=== PATIENT | female | born 1960 | race Caucasian/White ===

== ENCOUNTER 2016-03-27 13:46 | Observation (INO) ==
[2016-03-27] MEDS ORDERED: Naloxone 0.4 MG/ML INJ IVP PRN (16:30)
[2016-03-27] MEDS ORDERED: *HR* Morphine 2 MG/ML SYRINGE IVP PRN (16:30)
[2016-03-27 17:21] LABS: Chol/HDL Ratio 3.5 (0-4.9)
[2016-03-27] MEDS ORDERED: D5% in Water 1,000 ML IV PRN (17:25)
[2016-03-27] MEDS ORDERED: *HR* Dextrose 50 % in Water (Syg) 50 ML SYRINGE IVP PRN (17:25)
[2016-03-27] MEDS ORDERED: Dextrose Gel 15 GM PO PRN ×2 (17:25)
--- NOTE | 2016-03-27 17:25 | Internal Med History&Physical ---
Date of Encounter: 03/27/16 Time of Encounter: 17:20 Assessment and Plan (1) Elevated troponin Current visit: Yes Status: Acute In the setting of chest pain, with no EKG changes. Possibly from demand ischemia CXR with RLL pneumonia Trend troponins Continue medical therapy with ASA Beta blockers, Lipitor, and before meals. Check A1c and lipid panel. Obtain echocardiogram. Cardiology eval Sublingual nitroglycerin when necessary chest pain (2) Pneumonia Current visit: Yes Status: Acute RLL pneumonia Start Ceftriaxone and ASA No evidence of sepsis Check legionella and streptococcal antigens send sputum cultures Qualifiers: Pneumonia type: due to unspecified organism Laterality: right Lung location: lower lobe of lung Qualified Code(s): J18.1 - Lobar pneumonia, unspecified organism (3) Chest pain Current visit: Yes Status: Acute As above Qualifiers: Chest pain type: unspecified Qualified Code(s): R07.9 - Chest pain, unspecified (4) Diabetes mellitus Current visit: Yes Status: Chronic Qualifiers: Diabetes mellitus type: type 2 Diabetes mellitus complication status: with unspecified complications 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 Qualified Code(s): E11.8 - Type 2 diabetes mellitus with unspecified complications (5) Fibromyalgia Current visit: Yes Status: Chronic Resume home medications when confirmed (6) Seizure disorder Current visit: Yes Status: Chronic Resume home medications when confirmed (7) Hyperlipidemia Current visit: Yes Status: Chronic Check lipid panel, resume Lipitor Qualifiers: Hyperlipidemia type: unspecified Qualified Code(s): E78.5 - Hyperlipidemia , unspecified (8) Hypertension Current visit: Yes Status: Chronic Controlled, resume home meds Qualifiers: Hypertension type: essential hypertension Qualified Code(s): I10 - Essential (primary) hypertension Internal Medicine - H&P: HPI Chief complaint: Chest pain Admitted From: Home Plans for Post Hospital Care: Home History of present illness: Ms. Olivia is a 55 year old female with past medical history of asthma COPD, diabetes mellitus, fibromyalgia, hypertension, hyperlipidemia, seizures, obesity. Patient presents to ER at [facility] with complaints of one-week long chest pain She describes the chest pain was pressure-like and central chest non-radiating at the time. Chest pain was severe, and relieved spontaneously. Denies nausea or vomiting, denies dizziness, reports feeling diaphoretic and clammy at the time when she had the chest pain. She presented to her PCP today and was referred to the ER. She also has cough starting at the same time productive of greenish sputum she denies fever or chills. She denies lower extremity swelling, denies orthopnea, denies paroxysmal nocturnal dyspnea. She also reported since the onset of the chest. She has been having left arm weakness and tingling. She denies abdominal, genitourinary, or neurologic symptoms. She also recently developed right shingles she is on treatment. Workup referral sent to revealed essentially normal CBC, chemistry, carbonation , now, and EKG no new ischemic changes. Troponin was 0.07 Patient was given nitroglycerin patch, aspirin and Zofran. At my time of review, she denied chest pain. Past Med Surg Social Fam HX - Past Medical History Medical history: asthma, cancer, COPD, diabetes, fibromyalgia, hyperlipidemia, hypertension, malignancy, seizures, TIA, other Psychiatric history: anxiety, depression, prior suicide attempt - Past Surgical History Surgical History: cholecystectomy, hysterectomy, knee replacement, orthopedic, other, other - Social History Smoking Status: Current every day smoker Packs per day: 1 Smokeless Tobacco Status: No Alcohol use: none Drug use: none - Family History Mother Hx Family Cardiac Disorders: Yes Hx Family Cancer: Yes Hx Family Endocrine Disorder: Yes Internal Medicine - H&P: Meds Aspirin Enteric Coated [Aspirin EC] 81 mg PO DAILY 01/26/15 [History] Docusate Sodium [Stool Softener] 50 mg PO TID 01/26/15 [History] Escitalopram [Lexapro] 30 mg PO DAILY 01/26/15 [History] Gabapentin [Neurontin] 600 mg PO TID 01/26/15 [History] Lisinopril [Zestril] 5 mg PO DAILY 01/26/15 [History] Omeprazole [PriLOSEC] 20 mg PO DAILY 01/26/15 [History] RisperiDONE [RisperDAL] 4 mg PO HS 01/26/15 [History] Rosuvastatin Calcium [Crestor] 10 mg PO HS 01/26/15 [History] TraZODone 100 mg PO HS 01/26/15 [History] Zonisamide [Zonegran] 100 mg PO DAILY 01/26/15 [History] Zonisamide [Zonegran] 150 mg PO HS 01/26/15 [History] Aclidinium [place] [Tudorza Pressair] 1 puff IH BID 12/14/15 [History] Albuterol Sulfate [Ventolin Hfa] 2 puff IH Q4H 12/14/15 [History] Alprazolam [Xanax 1 MG Tablet] 1 mg PO TID PRN 12/14/15 [History] Diclofenac Sodium [Voltaren] 1 appl TP QID 12/14/15 [History] Fluticasone/Salmeterol [Advair 500-50 Diskus] 1 puff IH BID 12/14/15 [History] Ipratropium/Albuterol Neb [Duoneb] 3 ml IH Q6HR 12/14/15 [History] Lidocaine Patch [Lidoderm 5% patch] 1 patch TP DAILY PRN 12/14/15 [History] Melatonin 10 mg PO HS 12/14/15 [History] Metformin [Glucophage] 500 mg PO BIDWM 12/14/15 [History] Nitroglycerin [Nitrostat] 0.4 mg SL AD PRN 12/14/15 [History] Oxycodone HCl/Acetaminophen [Percocet 7.5-325 mg Tablet] 1 tab PO Q6H PRN [History] Pramipexole Di-HCl [Pramipexole Dihydrochloride] 0.125 mg PO HS 12/14/15 [ History] Psyllium Husk [Daily Fiber] 0.52 gm PO TID 12/14/15 [History] Acyclovir [Zovirax] 800 mg PO QID 03/27/16 [History] Allergies amitriptyline Allergy (Verified 03/27/16 11:42) Anaphylaxis ibuprofen Allergy (Verified 03/27/16 11:42) See Comments UNSURE meloxicam Allergy (Verified 03/27/16 11:42) Difficulty Breathing methocarbamol [From Robaxin] Allergy (Verified 03/27/16 11:42) Difficulty Breathing naproxen Allergy (Verified 03/27/16 11:42) See Comments UNSURE NSAIDS (Non-Steroidal Anti-Inflamma Adverse Reaction (Verified 03/27/16 11:42) See Comments FLUID RETENTION sulfamethoxazole [From Bactrim] Adverse Reaction (Verified 03/27/16 11:42) Hives Temazepam Adverse Reaction (Verified 03/27/16 11:42) See Comments SOB tramadol [From Ultram] Adverse Reaction (Verified 03/27/16 11:42) See Comments Fluid retention trimethoprim [From Bactrim] Adverse Reaction (Verified 03/27/16 11:42) Hives All Systems PM: A 10-system review of systems was performed and is negative for pertinent findings except as documented above in the HPI. - Constitutional Constitutional: no chills, no fever(s), no night sweats - EENT Eyes: no change in vision, no discharge, no pain, no photophobia Ears: no ear discharge, no ear pain, no tinnitus Nose, mouth and throat: no dysphagia, no nasal discharge, no neck pain, no sore throat - Cardiovascular Cardiovascular ROS IM: as per HPI - Respiratory Respiratory: as per HPI - Gastrointestinal Gastrointestinal: as per HPI - Genitourinary Genitourinary: as per HPI - Musculoskeletal Musculoskeletal ROS IM: no numbness, no tingling - Integumentary Integumentary IM: no rash, no unusual bruising - Neurological Neurological ROS: no confusion, no convulsions, no focal weakness, no numbness, no tingling, no tremor(s) - Hematologic/Lymphatic Hematologic/Lymphatic: no easy bruising - Constitutional Vitals: Temp Pulse Resp BP Pulse Ox 98.0 F 87 17 126/71 93 L 03/27/16 16:14 03/27/16 16:14 03/27/16 16:14 03/27/16 16:14 03/27/16 16:14 General appearance: Present: A&O X 3, pleasant, no acute distress, obese - Head Head exam: Present: atraumatic, normocephalic - Eye Eye exam: Present: PERRL, conjuntiva pink, sclera anicteric Pupils: Present: PERRL - Neck Neck exam general surgery: Present: supple, trachea midline. Absent: lymphadenopathy - Respiratory Respiratory exam: Present: CTAB. Absent: accessory muscle use, rales, rhonchi, wheezes - Cardiovascular Cardiovascular exam: Present: RRR, +S1, +S2. Absent: diastolic murmur, gallop, rubs, systolic murmur - GI/Abdominal GI/Abdominal exam: Present: normal bowel sounds, soft, no peritoneal signs. Absent: distended, tenderness - Extremities Exam Extremities exam: Present: warm, radial pulses palpable and symetrical. Absent : calf tenderness, cyanotic, pedal edema - Neurological Exam Neurological exam: Present: CN II-XII intact, oriented X3, no focal deficits. Absent: pronater drift, facial droop, speech deficit - Skin Skin exam: Present: dry, intact Internal Med - H&P Results - EKG Data -: EKG Interpreted by Myself EKG shows normal: sinus rhythm, ST-T waves Rate: normal - EKG Data Prior EKG available for review: yes When compared to previous EKG: there is no significant change Interpretation IM: normal EKG
[2016-03-27] MEDS: Nicotine 21 MG PATCH.TD24 TD SCH (17:43)
[2016-03-27] MEDS: *HR* OxyCODONE Immed Rel 5 MG TABLET PO PRN (17:44)
[2016-03-27] MEDS: Azithromycin 500 MG in D5% in Water 250 ML IVPB SCH (20:03)
[2016-03-27] MEDS: Acetaminophen 325 MG TABLET PO PRN (20:18)
[2016-03-27] MEDS ORDERED: (Diclofenac Sodium [Voltaren] 1 APPL) TP PRN (20:49)
[2016-03-27] MEDS ORDERED: Nitroglycerin 0.4 MG TAB.SUBL SL PRN (20:49)
[2016-03-27] MEDS: traZODone 50 MG TABLET PO SCH (21:38)
[2016-03-27] MEDS: Gabapentin 300 MG CAPSULE PO SCH (21:38)
[2016-03-27] MEDS: ALPRAZolam 1 MG TABLET PO PRN (21:39)
[2016-03-27] MEDS: Melatonin 3 MG TABLET PO SCH (21:39)
[2016-03-27] MEDS: risperiDONE 1 MG TABLET PO SCH (21:40)
[2016-03-27] MEDS: Docusate Oral Soln 100 MG/10 ML UDC PO SCH (21:43)
[2016-03-27] MEDS: Insulin LISPRO 300 UNITS/3 ML VIAL SQ SCH (21:45)
[2016-03-27] MEDS: Insulin DETEMIR 100 UNIT/ML X5UNITS SQ SCH (21:46)
[2016-03-27] MEDS: Budesonide/Formoterol 160/4.5 MDI IH SCH (22:59)
[2016-03-28] MEDS ORDERED: Ipratropium/Albuterol Neb 3 ML IH SCH
[2016-03-28] MEDS: (Aclidinium Bromide [Tudorza Pressair] 1 PUFF) IH SCH ×2 (04:37→10:28)
[2016-03-28] MEDS ORDERED: Ipratropium/Albuterol Neb 3 ML ONE (04:39)
[2016-03-28 05:13] LABS: Basophils # 0.1 K/mcL (0.0-0.2); Basophils % 0.5 %; Eosinophils % 0.4 %; Hematocrit 42.4 % (35.3-44.9); Immature Granulocytes % 0.5 % (0-4); Lymphocytes % 27.2 %; Mean Corpuscular Hemoglobin 30.8 pg (28.0-33.3); Mean Corpuscular Volume 93.2 fL (83.0-100.0); Mean Platelet Volume 9.8 fL (9.4-12.4); Monocytes # 0.8 K/mcL (0.0-1.3); Platelet Count 260 K/mcL (140-400); Red Blood Count 4.55 M/mcL (3.82-4.97); Red Cell Distribution Width 13.5 % (11.5-14.5); Segmented Neutrophils % 64.4 %
[2016-03-28 05:28] LABS: Hemoglobin A1C 5.7 %
[2016-03-28 05:34] LABS: BUN/Creatinine Ratio 11 (6-26); Blood Urea Nitrogen 7 mg/dL (7-20); Calcium 9.4 mg/dL (8.6-10.8); Carbon Dioxide 22 mEq/L (19-29); Chloride 110 mEq/L (98-109); Glucose 92 mg/dL (70-99); Osmolality,Calculated 292 (280-300); Sodium 142 mEq/L (136-145); eGFR For African Americans > 60 (> 60); eGFR For Non-African Americans > 60 (> 60)
--- NOTE | 2016-03-28 08:43 | Cardiology Consult Note ---
Date of Encounter: 03/28/16 Time of Encounter: 08:34 Assessment and Plan (1) Atypical chest pain Current Visit: Yes Status: Acute Patient is a pleasant 55-year-old with multiple comorbidities who presents with 2 weeks of chest discomfort. Describes associated fevers, chills, and a productive cough. Chest x-ray demonstrates a right lower lobe infiltrate suggestive of pneumonia. Mild, adynamic troponin I elevation noted. No acute ECG changes. Presentation is not consistent with acute coronary syndrome. Suspect troponin elevation related to pneumonia. Agree with echocardiogram. If no significant findings on echocardiogram, then no further inpatient cardiac testing appears to be necessary at this time. Your medical management regarding pneumonia. (2) Elevated troponin Current Visit: Yes Status: Acute Discussion w patient/family: The assessment and plan as outlined above was discussed with the patient and/or family members who expressed understanding and agreement. All questions were answered. Thank you for involving us in the care of your patient. Please call with any questions. History of Present Illness Consult date: 03/28/16 Requesting physician: Noel Mccrary Consult reason: Chest pain Chief complaint: Chest pain History of present illness: Ms. Olivia is a 55 year old female with a history of COPD, CRISTIANA on CPAP, DM, HLD, and HTN. Transferred from outside hospital for CP. ECG 03/27/2016: NSR. Nonspecific inferior ST-T changes. Troponins 0.05, 0.06, 0.05. CXR 03/27/2016: RLL infiltrate. Upon my evaluation, patient reports chest discomfort for the past 2 weeks. She also reports a productive cough, yellow sputum. She describes intermittent subjective fevers and chills. She reports chest pain is reproducible with coughing. Prior testing: Lexiscan nuclear stress test 07/2012: Negative for ischemia or prior infarct. Echocardiogram 07/2012: LVEF 60-65%. Normal LV, RV size and function. No VHD. Small pericardial effusion. No tamponade. Past Med Surg Social Fam HX - Past Medical History Medical history: asthma, cancer, COPD, diabetes, fibromyalgia, hyperlipidemia, hypertension, malignancy, seizures, TIA, other Psychiatric history: anxiety, depression, prior suicide attempt - Past Surgical History Surgical History: cholecystectomy, hysterectomy, knee replacement, orthopedic, other, other - Social History Smoking Status: Current every day smoker Packs per day: 1 Smokeless Tobacco Status: No Alcohol use: none Drug use: none - Family History Mother Hx Family Cardiac Disorders: Yes Hx Family Cancer: Yes Hx Family Endocrine Disorder: Yes Medications and Allergies Aspirin Enteric Coated [Aspirin EC] 81 mg PO DAILY 01/26/15 [History] Docusate Sodium [Stool Softener] 50 mg PO TID 01/26/15 [History] Escitalopram [Lexapro] 30 mg PO DAILY 01/26/15 [History] Gabapentin [Neurontin] 600 mg PO TID 01/26/15 [History] Lisinopril [Zestril] 5 mg PO DAILY 01/26/15 [History] Omeprazole [PriLOSEC] 20 mg PO DAILY 01/26/15 [History] RisperiDONE [RisperDAL] 1 mg PO HS 01/26/15 [History] Rosuvastatin Calcium [Crestor] 10 mg PO HS 01/26/15 [History] TraZODone 100 mg PO HS 01/26/15 [History] Zonisamide [Zonegran] 100 mg PO DAILY 01/26/15 [History] Zonisamide [Zonegran] 150 mg PO HS 01/26/15 [History] Aclidinium [place] [Tudorza Pressair] 1 puff IH BID 12/14/15 [History] Albuterol Sulfate [Ventolin Hfa] 2 puff IH Q4H 12/14/15 [History] Alprazolam [Xanax 1 MG Tablet] 1 mg PO TID PRN 12/14/15 [History] Diclofenac Sodium [Voltaren] 1 appl TP QID 12/14/15 [History] Fluticasone/Salmeterol [Advair 500-50 Diskus] 1 puff IH BID 12/14/15 [History] Ipratropium/Albuterol Neb [Duoneb] 3 ml IH Q6HR 12/14/15 [History] Lidocaine Patch [Lidoderm 5% patch] 1 patch TP DAILY PRN 12/14/15 [History] Melatonin 10 mg PO HS 12/14/15 [History] Metformin [Glucophage] 500 mg PO BIDWM 12/14/15 [History] Nitroglycerin [Nitrostat] 0.4 mg SL AD PRN 12/14/15 [History] Oxycodone HCl/Acetaminophen [Percocet 7.5-325 mg Tablet] 1 tab PO Q6H PRN [History] Pramipexole Di-HCl [Pramipexole Dihydrochloride] 0.125 mg PO HS 12/14/15 [ History] Psyllium Husk [Daily Fiber] 0.52 gm PO TID 12/14/15 [History] Acyclovir [Zovirax] 800 mg PO QID 03/27/16 [History] Allergies amitriptyline Allergy (Verified 03/27/16 11:42) Anaphylaxis ibuprofen Allergy (Verified 03/27/16 11:42) See Comments UNSURE meloxicam Allergy (Verified 03/27/16 11:42) Difficulty Breathing methocarbamol [From Robaxin] Allergy (Verified 03/27/16 11:42) Difficulty Breathing naproxen Allergy (Verified 03/27/16 11:42) See Comments UNSURE NSAIDS (Non-Steroidal Anti-Inflamma Adverse Reaction (Verified 03/27/16 11:42) See Comments FLUID RETENTION sulfamethoxazole [From Bactrim] Adverse Reaction (Verified 03/27/16 11:42) Hives Temazepam Adverse Reaction (Verified 03/27/16 11:42) See Comments SOB tramadol [From Ultram] Adverse Reaction (Verified 03/27/16 11:42) See Comments Fluid retention trimethoprim [From Bactrim] Adverse Reaction (Verified 03/27/16 11:42) Hives All Systems Review: A 10-system review of systems was performed and is negative for pertinent findings except as documented above in the HPI. - Constitutional Constitutional: fever(s), lethargy, weakness - Cardiovascular Cardiovascular: as per HPI - Respiratory Respiratory: cough, other (Sputum production.) Physical Examination Vital Signs, Last 4 Hours Temp Pulse Resp BP 03/28/16 08:00 97.6 F 70 94 103/67 General: Conversant, No Apparent Distress HEENT: Atraumatic, Normocephaly, Mucus Membranes Moist Neck: No JVD, Normal carotid pulses Cardiac: Reg Rate and Rhythm, Normal S1 and S2, No Murmur Lungs: Normal Breath Sounds, No Wheeze, Rales, Rhonchi Neuro: Alert and responsive, No focal deficits noted Abdomen: Soft, Non-Tender Skin: No rashes noted on visualized skin Musculoskeletal: No Chest Wall Tenderness Extremities: No Clubbing, No Cyanosis, No Edema Results 03/28/16 04:14 03/28/16 04:14 Lab Results 03/27/16 03/27/16 03/28/16 16:52 23:04 04:14 WBC 10.9 Hgb 14.0 Hct 42.4 Plt Count 260 Sodium Potassium Chloride Carbon Dioxide BUN Creatinine Glucose Calcium Troponin I 0.05 H* 0.06 H* 03/28/16 03/28/16 04:14 04:14 WBC Hgb Hct Plt Count Sodium 142 Potassium 4.0 Chloride 110 H Carbon Dioxide 22 BUN 7 Creatinine 0.66 Glucose 92 Calcium 9.4 Troponin I 0.05 H* - Imaging and Cardiology Stress Test: report reviewed Echo: report reviewed Consult Discharge Plan - Plan Referrals: Juan Manuel Garcia, [place] [Primary Care Provider] -
[2016-03-28] MEDS: Insulin LISPRO 300 UNITS/3 ML VIAL SQ SCH ×7 (10:27→22:16)
[2016-03-28] MEDS: Nicotine 21 MG PATCH.TD24 TD SCH (10:35)
[2016-03-28] MEDS: Docusate Oral Soln 100 MG/10 ML UDC PO SCH ×3 (10:37→22:16)
[2016-03-28] MEDS: Aspirin Enteric Coated 81 MG Tablet PO SCH (10:37)
[2016-03-28] MEDS: Gabapentin 300 MG CAPSULE PO SCH ×3 (10:38→20:46)
[2016-03-28] MEDS: *HR* OxyCODONE Immed Rel 5 MG TABLET PO PRN (10:39)
[2016-03-28] MEDS: Ipratropium/Albuterol Neb 3 ML IH SCH ×3 (10:43→21:51)
[2016-03-28] MEDS: Budesonide/Formoterol 160/4.5 MDI IH SCH ×2 (10:43→21:51)
[2016-03-28] MEDS: ALPRAZolam 1 MG TABLET PO PRN ×2 (10:51→20:47)
--- NOTE | 2016-03-28 14:41 | ECHO - Doppler Report ---
Echocardiogram Name: Verónica Olivia Date of Study: 03/28/2016 Date: 1960 Ht: 65.0 in Medical Record#: [id number] Age: 55 Wt: 213.0 lb Gender: Female BSA: 2.03 Order #: [id number] Location: [facility] Room #: [id number] Reading Physician: Callum Randall MD, [facility] Supervisory Civil Engineer: Ani Weir RVT Ordering Physician: Noel Mccrary MD Primary Physician: Sarah Garcia CNP Indications: Chest pain Impressions: Normal left ventricular size and systolic function, LVEF 55-60%. Normal left ventricular diastolic function. Normal right ventricular size and function. No significant valvular dysfunction. Mild pulmonary hypertension. Estimated RVSP = 40 mmHg. Left Ventricular Wall Motion: Rest Echo Findings All wall segments showed normal motion. Findings: Study Quality * Suboptimal echo windows. ECG Findings * Sinus rhythm and sinus bradycardia. Left Ventricle * Normal left ventricular size and systolic function, LVEF 55-60%. * Normal LV wall thickness. * Normal left ventricular diastolic function. Right Ventricle * Normal right ventricular size and function. Left Atrium * Normal left atrial size. Right Atrium * Normal right atrial size. Aorta * Normally sized aortic root. Pericardium * There is no pericardial effusion present. IVC * The IVC is mildly dilated. Aortic Valve * Aortic valve not well visualized. * No aortic stenosis. * No aortic regurgitation. Mitral Valve * Normal mitral valve structure. * No mitral stenosis. * Trace mitral regurgitation. Tricuspid Valve * Tricuspid valve not well visualized. * No tricuspid stenosis. * Trace tricuspid regurgitation. * Mild pulmonary hypertension. Estimated RVSP = 40 mmHg. Pulmonic Valve * Pulmonic valve not well visualized. * No pulmonic stenosis. * No pulmonic regurgitation. History Hypertension Diabetes Hypercholesteremia Family History of CAD Measurements: BP: 103/ 67 2D Normal Values RVIDd: 3.20 cm IVSd: .90 cm 0.6 - 1.0 cm LVIDd: 5.20 cm 3.7 - 5.6 cm LVPWd: .90 cm 0.6 - 1.1 cm LVIDs: 2.80 cm 1.5 - 3.6 cm AO: 2.90 cm < 4.0 cm LA volume: 43 Mitral Valve Peak E:.94 m/sec Peak A:.87 m/sec E/A Ratio:1.1 Tricuspid Valve TV Regurg Peak Grad: 32.00mmHg TV Regurg Peak Brad: 2.82m/sec Updated by Callum Randall MD, [facility] on 03/28/2016 2:35:17 PM electronically signed on 03/28/2016 2:36:16 PM with status of Final Wall Motion [place]: 1=Normal, 2=Hypokinesis, 3=Akinesis, 4=Dyskinesis, 5=Aneurysmal, 6=Hyperkinetic, X=Not Visualized (Blank)=Missing
--- NOTE | 2016-03-28 15:38 | Event Note ---
Date of Encounter: 03/28/16 Time of Encounter: 15:37 Patient seen and examined. Resting comfortably in her bed. No chest pain. Echoardiogram normal. Suspect mild, adynamic troponin related to pneumonia. No further inpatient cardiac testing appears necessary. Cardiology will sign off. Please call with questions.
--- NOTE | 2016-03-28 16:42 | Internal Med Progress Note ---
Date of Encounter: 03/28/16 Time of Encounter: 16:40 - Assessment and plan (1) Elevated troponin Current Visit: Yes Status: Acute Assessment and plan: In the setting of chest pain, with no EKG changes and RLLL pneumonia. Possibly from demand ischemia cardiology consulted and no intervention required. (2) Pneumonia Current Visit: Yes Status: Acute Assessment and plan: RLL pneumonia conitnu Ceftriaxone and ASA No evidence of sepsis legionella and streptococcal antigen is negative. follow sputum cultures Qualifiers: Pneumonia type: due to unspecified organism Laterality: right Lung location: lower lobe of lung Qualified Code(s): J18.1 - Lobar pneumonia, unspecified organism (3) Diabetes mellitus Current Visit: Yes Status: Chronic Qualifiers: Diabetes mellitus type: type 2 Diabetes mellitus complication status: with unspecified complications Diabetes mellitus alf insulin use: without alf use Qualified Code(s): E11.8 - Type 2 diabetes mellitus with unspecified complications (4) Fibromyalgia Current Visit: Yes Status: Chronic (5) Hyperlipidemia Current Visit: Yes Status: Chronic Qualifiers: Hyperlipidemia type: unspecified Qualified Code(s): E78.5 - Hyperlipidemia , unspecified (6) Hypertension Current Visit: Yes Status: Chronic Qualifiers: Hypertension type: essential hypertension Qualified Code(s): I10 - Essential (primary) hypertension (7) Seizure disorder Current Visit: Yes Status: Chronic - Time Spent With Patient 25 - 35 minutes - Subjective Interval history: Patient seen at the bedside, transferred from ER at [facility] for chest pain, was noted to have right lower lobe pneumonia. This morning complains of cough , no chest pain at this time. Started on IV antibiotics for community-acquired pneumonia. Remains afebrile, hemodynamically stable. - Constitutional Vitals: Temp Pulse Resp BP Pulse Ox 97.4 F L 65 20 108/69 94 L 03/28/16 16:07 03/28/16 16:07 03/28/16 16:07 03/28/16 16:07 03/28/16 16:07 General appearance: Present: A&O X 3, pleasant, no acute distress, obese Exam: General appearance: Present: A&O X 3, pleasant, no acute distress, obese - Head Head exam: Present: atraumatic, normocephalic - Eye Eye exam: Present: PERRL, conjuntiva pink, sclera anicteric Pupils: Present: PERRL - Neck Neck exam general surgery: Present: supple, trachea midline. Absent: lymphadenopathy - Respiratory Respiratory exam: Present: CTAB. Absent: accessory muscle use, rales, rhonchi, wheezes - Cardiovascular Cardiovascular exam: Present: RRR, +S1, +S2. Absent: diastolic murmur, gallop, rubs, systolic murmur - GI/Abdominal GI/Abdominal exam: Present: normal bowel sounds, soft, no peritoneal signs. Absent: distended, tenderness - Extremities Exam Extremities exam: Present: warm, radial pulses palpable and symetrical. Absent : calf tenderness, cyanotic, pedal edema - Neurological Exam Neurological exam: Present: CN II-XII intact, oriented X3, no focal deficits. Absent: pronater drift, facial droop, speech deficit - Skin Skin exam: Present: dry, intact Internal Medicine: Result - Labs CBC & Chem 7: 03/28/16 04:14 03/28/16 04:14 Labs: Short CBC 03/28/16 Range/Units 04:14 WBC 10.9 (4.3-11.1) K/mcL Hgb 14.0 (11.5-15.4) g/dL Hct 42.4 (35.3-44.9) % Plt Count 260 (140-400) K/mcL Neutrophils # 7.0 (1.6-8.9) K/mcL BMP 03/28/16 04:14 Sodium 142 Potassium 4.0 Chloride 110 H Carbon Dioxide 22 BUN 7 Creatinine 0.66 Glucose 92 Calcium 9.4 Cardiac Enzymes 03/27/16 03/27/16 03/28/16 Range/Units 16:52 23:04 04:14 Troponin I 0.05 H* 0.06 H* 0.05 H* (0-0.03) ng/mL - Impressions Impressions Chest X-Ray 03/27/16 16:54 IMPRESSION: Right lower lobe infiltrate. Recommend follow-up imaging to confirm resolution D/ / Modesto Pink MD / Mod[place] Pink MD Interpreting Provider: Modesto Pink MD Consult Discharge Plan - Plan Referrals: Juan Manuel Garcia CNP [Primary Care Provider] - 04/03/16 3:00 pm
[2016-03-28] MEDS: Melatonin 3 MG TABLET PO SCH (20:45)
[2016-03-28] MEDS: traZODone 50 MG TABLET PO SCH (20:45)
[2016-03-28] MEDS: Acetaminophen 325 MG TABLET PO PRN (20:46)
[2016-03-28] MEDS: risperiDONE 1 MG TABLET PO SCH (20:47)
[2016-03-28] MEDS: Azithromycin 500 MG in D5% in Water 250 ML IVPB SCH (20:48)
[2016-03-28] MEDS: Insulin DETEMIR 100 UNIT/ML X5UNITS SQ SCH (21:06)
[2016-03-29] MEDS: Ipratropium/Albuterol Neb 3 ML IH SCH ×2 (03:21→09:02)
[2016-03-29] MEDS: (Aclidinium Bromide [Tudorza Pressair] 1 PUFF) IH SCH (03:24)
[2016-03-29 07:37] VITALS: BP 124/66
[2016-03-29] MEDS: Insulin LISPRO 300 UNITS/3 ML VIAL SQ SCH ×2 (08:38→11:56)
[2016-03-29 08:40] LABS: Basophils # 0.1 K/mcL (0.0-0.2); Basophils % 1.2 %; Eosinophils # 0.1 K/mcL (0.0-0.6); Eosinophils % 1.5 %; Hematocrit 42.6 % (35.3-44.9); Hemoglobin 14.1 g/dL (11.5-15.4); Immature Granulocytes % 0.7 % (0-4); Lymphocytes # 2.9 K/mcL (0.6-4.6); Lymphocytes % 38.5 %; Mean Corpuscular HGB Conc 33.1 g/dL (31.6-35.5); Mean Corpuscular Hemoglobin 30.9 pg (28.0-33.3); Mean Corpuscular Volume 93.4 fL (83.0-100.0); Mean Platelet Volume 9.4 fL (9.4-12.4); Monocytes # 0.6 K/mcL (0.0-1.3); Neutrophils # 3.7 K/mcL (1.6-8.9); Platelet Count 258 K/mcL (140-400); Red Blood Count 4.56 M/mcL (3.82-4.97); Red Cell Distribution Width 13.7 % (11.5-14.5); Segmented Neutrophils % 50.1 %
[2016-03-29 08:53] LABS: BUN/Creatinine Ratio 13 (6-26); Blood Urea Nitrogen 9 mg/dL (7-20); Calcium 9.4 mg/dL (8.6-10.8); Carbon Dioxide 22 mEq/L (19-29); Chloride 110 mEq/L (98-109); Glucose 98 mg/dL (70-99); Osmolality,Calculated 293 (280-300); Potassium 3.9 mEq/L (3.5-4.5); Sodium 142 mEq/L (136-145); eGFR For African Americans > 60 (> 60); eGFR For Non-African Americans > 60 (> 60)
[2016-03-29] MEDS: Budesonide/Formoterol 160/4.5 MDI IH SCH (09:03)
[2016-03-29] MEDS: Gabapentin 300 MG CAPSULE PO SCH (09:15)
[2016-03-29] MEDS: Aspirin Enteric Coated 81 MG Tablet PO SCH (09:18)
[2016-03-29] MEDS: ALPRAZolam 1 MG TABLET PO PRN (09:19)
[2016-03-29] MEDS: *HR* OxyCODONE Immed Rel 5 MG TABLET PO PRN ×2 (09:19→11:59)
[2016-03-29] MEDS: Nicotine 21 MG PATCH.TD24 TD SCH (09:27)
[2016-03-29] MEDS: Docusate Oral Soln 100 MG/10 ML UDC PO SCH (09:27)
--- NOTE | 2016-03-29 10:06 | Discharge Summary ---
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 insulin use: without half-way use Qualified Code(s): E11.8 - Type 2 diabetes mellitus with unspecified complications (4) Fibromyalgia Priority: Secondary Status: Chronic (5) Hyperlipidemia Priority: Secondary Status: Chronic Qualifiers: Hyperlipidemia type: unspecified Qualified Code(s): E78.5 - Hyperlipidemia , unspecified (6) Hypertension Priority: Secondary Status: Chronic Qualifiers: Hypertension type: essential hypertension Qualified Code(s): I10 - Essential (primary) hypertension (7) Seizure disorder Priority: Secondary Status: Chronic - Discharge Medications Prescriptions: Amoxicillin/Clavulanate [Augmentin] 500 mg PO BIDWM #10 tablet Nicotine Patch [Nicoderm] 14 mg TD DAILY #30 patch.td24 Home Medications: Aspirin Enteric Coated [Aspirin EC] 81 mg PO DAILY 01/26/15 [History] Docusate Sodium [Stool Softener] 50 mg PO TID 01/26/15 [History] Escitalopram [Lexapro] 30 mg PO DAILY 01/26/15 [History] Gabapentin [Neurontin] 600 mg PO TID 01/26/15 [History] Lisinopril [Zestril] 5 mg PO DAILY 01/26/15 [History] Omeprazole [PriLOSEC] 20 mg PO DAILY 01/26/15 [History] RisperiDONE [RisperDAL] 1 mg PO HS 01/26/15 [History] Rosuvastatin Calcium [Crestor] 10 mg PO HS 01/26/15 [History] TraZODone 100 mg PO HS 01/26/15 [History] Zonisamide [Zonegran] 100 mg PO DAILY 01/26/15 [History] Zonisamide [Zonegran] 150 mg PO HS 01/26/15 [History] Aclidinium [place] [Tudorza Pressair] 1 puff IH BID 12/14/15 [History] Albuterol Sulfate [Ventolin Hfa] 2 puff IH Q4H 12/14/15 [History] Alprazolam [Xanax 1 MG Tablet] 1 mg PO TID PRN 12/14/15 [History] Diclofenac Sodium [Voltaren] 1 appl TP QID 12/14/15 [History] Fluticasone/Salmeterol [Advair 500-50 Diskus] 1 puff IH BID 12/14/15 [History] Ipratropium/Albuterol Neb [Duoneb] 3 ml IH Q6HR 12/14/15 [History] Lidocaine Patch [Lidoderm 5% patch] 1 patch TP DAILY PRN 12/14/15 [History] Melatonin 10 mg PO HS 12/14/15 [History] Metformin [Glucophage] 500 mg PO BIDWM 12/14/15 [History] Nitroglycerin [Nitrostat] 0.4 mg SL AD PRN 12/14/15 [History] Oxycodone HCl/Acetaminophen [Percocet 7.5-325 mg Tablet] 1 tab PO Q6H PRN [History] Pramipexole Di-HCl [Pramipexole Dihydrochloride] 0.125 mg PO HS 12/14/15 [ History] Psyllium [place] [Daily Fiber] 0.52 gm PO TID 12/14/15 [History] Acyclovir [Zovirax] 800 mg PO QID 03/27/16 [History] Amoxicillin/Clavulanate [Augmentin] 500 mg PO BIDWM #10 tablet 03/29/16 [Rx] Nicotine Patch [Nicoderm] 14 mg TD DAILY #30 patch.td24 03/29/16 [Rx] Allergies/Adverse Reactions: Allergies amitriptyline Allergy (Verified 03/27/16 11:42) Anaphylaxis ibuprofen Allergy (Verified 03/27/16 11:42) See Comments UNSURE meloxicam Allergy (Verified 03/27/16 11:42) Difficulty Breathing methocarbamol [From Robaxin] Allergy (Verified 03/27/16 11:42) Difficulty Breathing naproxen Allergy (Verified 03/27/16 11:42) See Comments UNSURE NSAIDS (Non-Steroidal Anti-Inflamma Adverse Reaction (Verified 03/27/16 11:42) See Comments FLUID RETENTION sulfamethoxazole [From Bactrim] Adverse Reaction (Verified 03/27/16 11:42) Hives Temazepam Adverse Reaction (Verified 03/27/16 11:42) See Comments SOB tramadol [From Ultram] Adverse Reaction (Verified 03/27/16 11:42) See Comments Fluid retention trimethoprim [From Bactrim] Adverse Reaction (Verified 03/27/16 11:42) Hives Procedures/tests Complete & Pending: Procedures Performed prior 72 hours Category Date Time Status EKG [ECG 12 lead ECG] [ECG] AM 0600 Y 03/28/16 06:00 Ordered EV echocardiogram Routine Y 03/28/16 17:33 Completed Date of admission: 03/27/16 15:49 Primary care physician: Juan Manuel Garcia CNP Consults: 03/27/16 18:53 Consult to Cardiology [CONS] Routine Comment: Consulting Provider: Cardiology Nadya Reason for Consult: Elevated troponins, possibly demand ischemia Call Completed: No Discharging clinician: Deja Das Anticipated date of discharge: 03/29/16 - Patient Status Disposition: Home, Self-Care Condition: Fair Functional capacity at discharge: independent ambulation Overall status at discharge: patient is back to baseline - Discharge Instructions Instructions: Chest Pain (DC), Pneumonia (DC) Follow Up With: Juan Manuel Garcia CNP [Primary Care Provider] - 04/03/16 3:00 pm - Diet and Activity Activity: resume usual activities as tolerated Diet: advance to your usual diet Interval History: Ms. Olivia is a 55 year old female with past medical history of asthma COPD, diabetes mellitus, fibromyalgia, hypertension, hyperlipidemia, seizures, obesity. Patient presents to ER at [facility] with complaints of one-week long chest pain She also recently developed right shingles she is on treatment. Workup referral sent to revealed essentially normal CBC, chemistry, carbonation , now, and EKG no new ischemic changes. Troponin was 0.07 Patient was given nitroglycerin patch, aspirin and Zofran. CXR showed RLL pneumoniA. SHE was admitted for chest pain in pranav setting of RLL pneumonia, cardio was consulted for mild elevation of trop, most likely 2/2 demand ischemia. she was started on IV antbiotics, urine for strep antigen and legionellla is negatve she improved clincally on IV antibiotcis and mucinex and is being dc on stable condition. Hospital course: Ms. Olivia is a 55 year old female Time spent discussing smoking cessation with patient: more than 10 minutes - Time Spent with Patient Total time spent providing and/or coordinating discharge services: Greater than 30 minutes - Constitutional Vitals: Temp Pulse Resp BP Pulse Ox 97.8 F 63 17 124/66 93 L 03/29/16 07:35 03/29/16 07:35 03/29/16 07:35 03/29/16 07:35 03/29/16 07:35 General appearance: Present: A&O X 3, pleasant, no acute distress, obese Exam: General appearance: Present: A&O X 3, pleasant, no acute distress, obese Exam: General appearance: Present: A&O X 3, pleasant, no acute distress, obese - Head Head exam: Present: atraumatic, normocephalic - Eye Eye exam: Present: PERRL, conjuntiva pink, sclera anicteric Pupils: Present: PERRL - Neck Neck exam general surgery: Present: supple, trachea midline. Absent: lymphadenopathy - Respiratory Respiratory exam: Present: CTAB. Absent: accessory muscle use, rales, rhonchi, wheezes - Cardiovascular Cardiovascular exam: Present: RRR, +S1, +S2. Absent: diastolic murmur, gallop, rubs, systolic murmur - GI/Abdominal GI/Abdominal exam: Present: normal bowel sounds, soft, no peritoneal signs. Absent: distended, tenderness - Extremities Exam Extremities exam: Present: warm, radial pulses palpable and symetrical. Absent : calf tenderness, cyanotic, pedal edema - Neurological Exam Neurological exam: Present: CN II-XII intact, oriented X3, no focal deficits. Absent: pronater drift, facial droop, speech deficit - Skin Skin exam: Present: dry, intact
== END 2016-03-29 12:26 | disposition home or self-care (01) ==
LOC: 3BNU → SUATTDRO 15:49
PROVIDERS: ADMIT Internal Medicine; ATTEND Internal Medicine Endocrinology, Diabetes & Metabolism

== ENCOUNTER 2016-12-04 15:08 | Observation (INO) ==
--- NOTE | 2016-12-04 16:02 | Emergency Department Note ---
START Narrative - START START: I examined this patient and my medical decision-making was reviewed with the Resident Physician. I agree with the documented findings, disposition and treatment plan as described except to the extent set forth below. 56-year-old female presents to the emergency room for an abnormal event monitor. Patient apparently is her heart rate went down into the 20s when she was sleeping the other night. She followed up with cardiology who sent her to the ER to be admitted. We spoke with cardiology who wanted a chemical stress test to be ordered for in the morning. Currently, she has no symptoms.
--- NOTE | 2016-12-04 16:09 | Emergency Department Note ---
Disposition Clinical Impression: Chest pain Qualifiers: Chest pain type: unspecified Qualified Code(s): R07.9 - Chest pain, unspecified Syncope Qualifiers: Syncope type: unspecified Qualified Code(s): R55 - Syncope and collapse Disposition: Admitted As Inpatient Condition: Serious Referrals: Juan Manuel Garcia CNP [Primary Care Provider] - Forms: ED Satisfaction Letter Time of Disposition: 17:08 General Adult HPI - General Chief complaint: ED Syncope Stated complaint: Syncope Time Seen by Provider: 12/04/16 15:29 Source: patient, family Limitations: no limitations Nursing Notes Reviewed: Yes Vital Signs Reviewed: Yes - History of Present Illness HPI Narrative: 56-year-old female 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 Patient has been having syncopal episodes along with on and off chest pain and overall feeling weak for the past 4 weeks. She was being worked up by her family physician. Family physician has put a 24 hour monitor on her. She was told of an episode where her heart rate dropped to 25 bpm overnight on the event monitor. Patient's family practitioner decided to send her to cardiology. When she arrived a cardiology me were concerned due to her current chest pain for unstable angina and sent her to the emergency department. Patient had an echo that was within normal limits approximately one year ago. Patient states she is currently having weakness but denies chest pain at this time. She states she overall does not feel well. No new acute symptoms. Symptoms of dizziness and syncope has been on and off for approximately 4 weeks and has not been getting worse. Patient currently stable in the room with stable vital signs with a heart rate of 62 bpm on examination. Patient has a significant past medical history of 3 prior strokes. Patient denies any cardiac history. No stents or CABGs completed. Pain Scale: 0 - Related Data Home Medications Medication Instructions Recorded Confirmed Aspirin Enteric Coated [Aspirin EC] 81 mg PO DAILY 01/26/15 12/04/16 Escitalopram [Lexapro] 20 mg PO DAILY 01/26/15 12/04/16 Gabapentin [Neurontin] 1,200 mg PO TID 01/26/15 12/04/16 Rosuvastatin Calcium [Crestor] 10 mg PO HS 01/26/15 12/04/16 Zonisamide [Zonegran] 100 mg PO QAM 01/26/15 12/04/16 Zonisamide [Zonegran] 150 mg PO HS 01/26/15 12/04/16 risperiDONE [RisperDAL] 1 mg PO HS 01/26/15 12/04/16 Aclidinium [place] [Tudorza 1 puff IH BID 12/14/15 12/04/16 Pressair] Albuterol Sulfate [Ventolin Hfa] 2 puff IH Q4H PRN 12/14/15 12/04/16 Diclofenac Sodium [Voltaren] 1 appl TP QID PRN 12/14/15 12/04/16 Fluticasone/Salmeterol [Advair 1 puff IH BID 12/14/15 12/04/16 500-50 Diskus] Ipratropium/Albuterol Neb [Duoneb] 3 ml IH Q6HR 12/14/15 12/04/16 Lidocaine Patch [Lidoderm 5% patch] 1 patch TP DAILY PRN 12/14/15 12/04/16 Melatonin 10 mg PO HS PRN 12/14/15 12/04/16 Nitroglycerin [Nitrostat] 0.4 mg SL Q5M PRN 12/14/15 12/04/16 Oxycodone HCl/Acetaminophen 1 tab PO Q6H PRN 12/14/15 12/04/16 [Percocet 7.5-325 mg Tablet] Pramipexole Di-HCl [Pramipexole 0.125 mg PO BID 12/14/15 12/04/16 Dihydrochloride] metFORMIN [Glucophage] 1,000 mg PO BIDWM 12/14/15 12/04/16 Esomeprazole Magnesium [Nexium] 40 mg PO DAILY 06/06/16 12/04/16 Buspirone HCl [Buspar] 20 mg PO BID 12/04/16 12/04/16 Calcium Polycarbophil [Fibercon] 625 mg PO QID 12/04/16 12/04/16 Docusate [Colace] 100 mg PO TID 12/04/16 12/04/16 Ergocalciferol (VITAMIN D2) 50,000 unit PO MO 12/04/16 12/04/16 [Vitamin D2] Trazodone HCl 150 - 300 mg PO HS 12/04/16 12/04/16 Vitamin B Complex [B Complex] 1 each PO DAILY 12/04/16 12/04/16 hydrOXYzine HCl [Hydroxyzine HCl] 50 mg PO TID PRN 12/04/16 12/04/16 Allergies Allergy/AdvReac Type Severity Reaction Status Date / Time amitriptyline Allergy Anaphylaxis Verified 12/04/16 15:17 ibuprofen Allergy See Verified 12/04/16 15:17 Comments meloxicam Allergy Difficulty Verified 12/04/16 15:17 Breathing methocarbamol [From Robaxin] Allergy Difficulty Verified 12/04/16 15:17 Breathing naproxen Allergy See Verified 12/04/16 15:17 Comments NSAIDS (Non-Steroidal AdvReac See Verified 12/04/16 15:17 Anti-Inflamma Comments sulfamethoxazole AdvReac Hives Verified 12/04/16 15:17 [From Bactrim] Temazepam AdvReac See Verified 12/04/16 15:17 Comments tramadol [From Ultram] AdvReac See Verified 12/04/16 15:17 Comments trimethoprim [From Bactrim] AdvReac Hives Verified 12/04/16 15:17 All systems ED: reviewed and negative except as stated. Constitutional: Reports: weakness. Denies: weight change, night sweats Eyes: Reports: as per HPI ENT ED: Reports: as per HPI Cardiovascular: Reports: chest pain. Denies: orthopnea, edema Respiratory: Denies: cough, wheezes, hemoptysis Gastrointestinal: Reports: nausea. Denies: abdominal pain, vomiting Genitourinary: Reports: as per HPI Musculoskeletal: Reports: as per HPI Integumentary: Reports: as per HPI Neurological: Reports: weakness. Denies: headache, numbness, paresthesias Psychiatric: Reports: as per HPI Endocrine: Reports: fatigue Hematological/Lymphatic: Reports: as per HPI Allergic/Immunologic: Reports: as per HPI Past Medical History - Past Medical History Attestation: Yes The following information was validated with the patient. 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 Absent: scleral icterus - Chest Chest inspection: Present: normal inspection, symmetric chest wall rise. Absent : tenderness, rash - Respiratory Respiratory exam: Present: wheezes, prolonged expiratory phase. Absent: respiratory distress, stridor, accessory muscle use - Cardiovascular Cardiovascular exam: Present: regular rate, normal rhythm, normal heart sounds - Abdominal Exam Abdominal exam: Present: soft, Non-Tender. Absent: distention, guarding, rebound - Extremities Exam Extremities exam: Present: normal inspection, full ROM - Neurological Exam Neurological exam: Present: alert, oriented X3 - Psychiatric Psychiatric exam: Present: normal affect, normal mood - Skin Skin exam: Present: warm, intact Course Course Narrative: 56-year-old female sent from [facility] for chief complaint of intermittent chest pain and syncopal episodes. Patient weighing a 24-hour monitor which picked up episode of bradycardia of 25 bpm overnight. Spoke with cardiology Dr. Webster who wishes the patient to be admitted. He would like to have a pharmacological stress test for her in the morning for concerns of unstable angina. We will do basic workup here with EKG, troponin, CBC, CMP, TSH and admit the patient. Vital Signs Temperature 97.7 F 12/04/16 15:17 Pulse Rate 62 12/04/16 15:17 Respiratory Rate 20 12/04/16 15:17 Blood Pressure 103/71 12/04/16 15:17 O2 Sat by Pulse Oximetry 94 12/04/16 15:17 Temperature 97.7 F 12/04/16 15:17 Pulse Rate 58 12/04/16 16:03 Respiratory Rate 16 12/04/16 16:03 Blood Pressure 100/48 12/04/16 16:03 O2 Sat by Pulse Oximetry 94 12/04/16 16:03 Oxygen Delivery Oxygen Delivery Room Air Medical Decision Making - Medical Records Medical records reviewed: Yes I reviewed the patient's medical records. - Lab Data Lab results reviewed: Yes I reviewed the patient's lab results. Result diagrams: 12/04/16 15:45 12/04/16 15:45 Lab Results 12/04/16 12/04/16 12/04/16 Range/Units 15:45 15:45 15:45 WBC 8.4 (4.3-11.1) K/mcL RBC 4.93 (3.82-4.97) M/mcL Hgb 14.7 (11.5-15.4) g/dL Hct 45.1 H (35.3-44.9) % MCV 91.5 (83.0-100.0) fL MCH 29.8 (28.0-33.3) pg MCHC 32.6 (31.6-35.5) g/dL RDW 13.9 (11.5-14.5) % Plt Count 237 (140-400) K/mcL MPV 9.9 (9.4-12.4) fL Immature Gran % 0.6 (0-4) % Seg Neutrophils % 60.7 % Lymphocytes % 29.4 % Monocytes % 6.3 % Eosinophils % 1.9 % Basophils % 1.1 % Neutrophils # 5.1 (1.6-8.9) K/mcL Lymphocytes # 2.5 (0.6-4.6) K/mcL Monocytes # 0.5 (0.0-1.3) K/mcL Eosinophils # 0.2 (0.0-0.6) K/mcL Basophils # 0.1 (0.0-0.2) K/mcL Sodium 141 (136-145) mEq/L Potassium 4.1 (3.5-4.5) mEq/L Chloride 106 (98-109) mEq/L Carbon Dioxide 26 (19-29) mEq/L BUN 11 (7-20) mg/dL Creatinine 0.82 (0.57-1.11) mg/dL Est GFR ( Amer) > 60 (> 60) Est GFR (Non-Af Amer) > 60 (> 60) BUN/Creatinine Ratio 13 (6-26) Glucose 115 H (70-99) mg/dL Calculated Osmolality 292 (280-300) Calcium 9.4 (8.6-10.8) mg/dL Total Bilirubin 0.3 (0.2-1.2) mg/dL AST 13 (5-34) Units/L ALT 17 (0-55) Units/L Alkaline Phosphatase 68 (38-126) Units/L Troponin I 0.00 (0-0.03) ng/mL Serum Total Protein 6.9 (6.0-8.3) g/dL Albumin 3.8 (3.5-5.0) g/dL Globulin 3.1 (2.4-3.5) g/dL Albumin/Globulin Ratio 1.2 (1.1-2.2) TSH 0.807 (0.350-4.840) mcIU/mL Urine Color (Yellow) Urine Clarity (Clear) Urine pH (5.0-8.0) pH Units Ur Specific [place] (1.010-1.025) Urine Protein (Neg-Trace) mg/dL Urine Glucose (UA) (Normal) mg/dL Urine Ketones (Negative) mg/dL Urine Blood (Negative) Urine Nitrite (Negative) Urine Bilirubin (Negative) Urine Urobilinogen (Normal) mg/dL Ur Leukocyte Esterase (Negative) Ur Culture Indicated? (NO) 12/04/16 Range/Units 16:17 WBC (4.3-11.1) K/mcL RBC (3.82-4.97) M/mcL Hgb (11.5-15.4) g/dL Hct (35.3-44.9) % MCV (83.0-100.0) fL MCH (28.0-33.3) pg MCHC (31.6-35.5) g/dL RDW (11.5-14.5) % Plt Count (140-400) K/mcL MPV (9.4-12.4) fL Immature Gran % (0-4) % Seg Neutrophils % % Lymphocytes % % Monocytes % % Eosinophils % % Basophils % % Neutrophils # (1.6-8.9) K/mcL Lymphocytes # (0.6-4.6) K/mcL Monocytes # (0.0-1.3) K/mcL Eosinophils # (0.0-0.6) K/mcL Basophils # (0.0-0.2) K/mcL Sodium (136-145) mEq/L Potassium (3.5-4.5) mEq/L Chloride (98-109) mEq/L Carbon Dioxide (19-29) mEq/L BUN (7-20) mg/dL Creatinine (0.57-1.11) mg/dL Est GFR ( Amer) (> 60) Est GFR (Non-Af Amer) (> 60) BUN/Creatinine Ratio (6-26) Glucose (70-99) mg/dL Calculated Osmolality (280-300) Calcium (8.6-10.8) mg/dL Total Bilirubin (0.2-1.2) mg/dL AST (5-34) Units/L ALT (0-55) Units/L Alkaline Phosphatase (38-126) Units/L Troponin I (0-0.03) ng/mL Serum Total Protein (6.0-8.3) g/dL Albumin (3.5-5.0) g/dL Globulin (2.4-3.5) g/dL Albumin/Globulin Ratio (1.1-2.2) TSH (0.350-4.840) mcIU/mL Urine Color Yellow (Yellow) Urine Clarity Clear (Clear) Urine pH 6.0 (5.0-8.0) pH Units Ur Specific [place] 1.008 L (1.010-1.025) Urine Protein Negative (Neg-Trace) mg/dL Urine Glucose (UA) Normal (Normal) mg/dL Urine Ketones Negative (Negative) mg/dL Urine Blood Negative (Negative) Urine Nitrite Negative (Negative) Urine Bilirubin Negative (Negative) Urine Urobilinogen Normal (Normal) mg/dL Ur Leukocyte Esterase Negative (Negative) Ur Culture Indicated? NO (NO) - Radiology Data Radiology results reviewed: Yes I reviewed the patient's radiology results. - EKG Data EKG #1 EKG attestation: Yes I reviewed and interpreted this EKG. EKG results narrative: 62 bpm. Normal sinus rhythm. Normal axis. AK interval 165, QRS 92, QTC 408. No signs of acute ischemia or ST segment elevation. Compared to previous EKG completed on 03/27/16 with no significant changes.
[2016-12-04 16:11] LABS: Alanine Aminotransferase 17 Units/L (0-55); Albumin 3.8 g/dL (3.5-5.0); Albumin/Globulin Ratio 1.2 (1.1-2.2); Alkaline Phosphatase 68 Units/L (38-126); Aspartate Amino Transferase 13 Units/L (5-34); BUN/Creatinine Ratio 13 (6-26); Bilirubin,Total 0.3 mg/dL (0.2-1.2); Blood Urea Nitrogen 11 mg/dL (7-20); Calcium 9.4 mg/dL (8.6-10.8); Carbon Dioxide 26 mEq/L (19-29); Chloride 106 mEq/L (98-109); Globulin 3.1 g/dL (2.4-3.5); Glucose 115 mg/dL (70-99); Osmolality,Calculated 292 (280-300); Potassium 4.1 mEq/L (3.5-4.5); Sodium 141 mEq/L (136-145); Total Protein 6.9 g/dL (6.0-8.3); eGFR For African Americans > 60 (> 60); eGFR For Non-African Americans > 60 (> 60)
[2016-12-04 16:19] LABS: Basophils # 0.1 K/mcL (0.0-0.2); Basophils % 1.1 %; Eosinophils # 0.2 K/mcL (0.0-0.6); Eosinophils % 1.9 %; Hematocrit 45.1 % (35.3-44.9); Hemoglobin 14.7 g/dL (11.5-15.4); Immature Granulocytes % 0.6 % (0-4); Lymphocytes # 2.5 K/mcL (0.6-4.6); Lymphocytes % 29.4 %; Mean Corpuscular HGB Conc 32.6 g/dL (31.6-35.5); Mean Corpuscular Hemoglobin 29.8 pg (28.0-33.3); Mean Corpuscular Volume 91.5 fL (83.0-100.0); Mean Platelet Volume 9.9 fL (9.4-12.4); Monocytes # 0.5 K/mcL (0.0-1.3); Monocytes % 6.3 %; Neutrophils # 5.1 K/mcL (1.6-8.9); Platelet Count 237 K/mcL (140-400); Red Blood Count 4.93 M/mcL (3.82-4.97); Red Cell Distribution Width 13.9 % (11.5-14.5); Segmented Neutrophils % 60.7 %
[2016-12-04 16:25] LABS: Bilirubin,Urine Negative (Negative); Blood,Urine Negative (Negative); Clarity,Urine Clear (Clear); Color,Urine Yellow (Yellow); Glucose,Urine (UA) Normal (Normal); Ketones,Urine Negative (Negative); Leukocyte Esterase,Urine Negative (Negative); Nitrite,Urine Negative (Negative); Protein,Urine Negative (Neg-Trace); Specific Gravity,Urine 1.008 (1.010-1.025); Urobilinogen,Urine Normal (Normal)
[2016-12-04 16:33] LABS: Thyroid Stimulating Hormone 0.807 mcIU/mL (0.350-4.840)
[2016-12-04] MEDS ORDERED: Acetaminophen 325 MG TABLET PO PRN (18:18)
[2016-12-04] MEDS ORDERED: Ondansetron 4 MG/2 ML VIAL IVP PRN (18:18)
[2016-12-04] MEDS ORDERED: Naloxone 0.4 MG/ML INJ IVP PRN (18:18)
[2016-12-04] MEDS ORDERED: (Diclofenac Sodium [Voltaren] 1 APPL) TP PRN (18:21)
[2016-12-04] MEDS ORDERED: Nitroglycerin 0.4 MG TAB.SUBL SL PRN (18:21)
--- NOTE | 2016-12-04 18:30 | Internal Med History&Physical ---
Date of Encounter: 12/04/16 Time of Encounter: 18:26 Assessment and Plan (1) Syncope Current visit: Yes Status: Acute Syncopal episodes likely secondary to symptomatic bradycardia Continue telemetry, fall precautions Hold trazodone as this can cause arrhythmias, consider holding pramipexole if orthostatic hypotension is evidenced Check orthostatics Cardiology recommended stress test in the morning Order echocardiogram and Lasix as the patient seems to be congested Omeprazole for GI prophylaxis and subcutaneous heparin for DVT prophylaxis, the patient will be admitted for observation, full code. Time spent on this admission 40 minutes. High risk for falling Qualifiers: Syncope type: unspecified Qualified Code(s): R55 - Syncope and collapse (2) Seizure disorder Current visit: No Status: Chronic Continue home meds (3) Hyperlipidemia Current visit: No Status: Chronic Qualifiers: Hyperlipidemia type: unspecified Qualified Code(s): E78.5 - Hyperlipidemia , unspecified (4) Chest pain Current visit: Yes Status: Acute Stress test in the morning, continue aspirin, follow troponins Qualifiers: Chest pain type: unspecified Qualified Code(s): R07.9 - Chest pain, unspecified (5) Diabetes mellitus Current visit: No Status: Chronic Hold metformin, continue insulin sliding scale Qualifiers: Diabetes mellitus type: type 2 Diabetes mellitus complication status: with unspecified complications 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 Olivia is a 56 year old female with a past medical history of diabetes type 2 not insulin-dependent, COPD not oxygen dependent, seizure disorder, remote history of cocaine, marijuana abuse and alcohol abuse, came to the emergency room complaining of several syncopal episodes and near syncopal episodes over the past few weeks. Also has been complaining of chest pain for the past 4 weeks on and off. In total, she has had for couple episodes in the past month, she describes these episodes as passing out on the couch while being on the bed or driving, cannot explain exactly how they happen feels dizzy at times. Patient has been on multiple psychiatry medications including trazodone which did not cause arrhythmias, pramipexole can cause orthostatic hypotension which has not been tested in the ER yet. Apparently the patient had a Holter monitor placed by her primary care physician which showed an episode of bradycardia with a heart rate 25. Also, her chest pain episodes are described as chest pressure that last from 5-10 minutes times. Complains of headaches, EKG and chest x-ray are unremarkable, normal troponin. 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, Sams's palsy, remote history of cocaine and marijuana abuse, remote history of alcohol abuse, gastritis) Psychiatric history: anxiety, depression, prior suicide attempt - Past Surgical History Surgical History: cholecystectomy, hysterectomy, knee replacement, orthopedic, other, other - Social History Smoking Status: Current every day smoker Packs per day: One half packs per day Smokeless Tobacco Status: No Alcohol use: none (Quit drinking) Drug use: none ( quit using drugs) - Family History Mother Hx Family Cardiac Disorders: Yes Hx Family Cancer: Yes Hx Family Endocrine Disorder: Yes - Additional Family History Additional family history: Brother with diabetes hypertension and CHF, father with diabetes and COPD, mother with diabetes and CVA Internal Medicine - H&P: Meds Aspirin Enteric Coated [Aspirin EC] 81 mg PO DAILY 01/26/15 [History] Escitalopram [Lexapro] 20 mg PO DAILY 01/26/15 [History] Gabapentin [Neurontin] 1,200 mg PO TID 01/26/15 [History] Rosuvastatin Calcium [Crestor] 10 mg PO HS 01/26/15 [History] Zonisamide [Zonegran] 100 mg PO QAM 01/26/15 [History] Zonisamide [Zonegran] 150 mg PO HS 01/26/15 [History] risperiDONE [RisperDAL] 1 mg PO HS 01/26/15 [History] Aclidinium [place] [Tudorza Pressair] 1 puff IH BID 12/14/15 [History] Albuterol Sulfate [Ventolin Hfa] 2 puff IH Q4H PRN 12/14/15 [History] Diclofenac Sodium [Voltaren] 1 appl TP QID PRN 12/14/15 [History] Fluticasone/Salmeterol [Advair 500-50 Diskus] 1 puff IH BID 12/14/15 [History] Ipratropium/Albuterol Neb [Duoneb] 3 ml IH Q6HR 12/14/15 [History] Lidocaine Patch [Lidoderm 5% patch] 1 patch TP DAILY PRN 12/14/15 [History] Melatonin 10 mg PO HS PRN 12/14/15 [History] Nitroglycerin [Nitrostat] 0.4 mg SL Q5M PRN 12/14/15 [History] Oxycodone HCl/Acetaminophen [Percocet 7.5-325 mg Tablet] 1 tab PO Q6H PRN [History] Pramipexole Di-HCl [Pramipexole Dihydrochloride] 0.125 mg PO BID 12/14/15 [ History] metFORMIN [Glucophage] 1,000 mg PO BIDWM 12/14/15 [History] Esomeprazole Magnesium [Nexium] 40 mg PO DAILY 06/06/16 [History] Buspirone HCl [Buspar] 20 mg PO BID 12/04/16 [History] Calcium Polycarbophil [Fibercon] 625 mg PO QID 12/04/16 [History] Docusate [Colace] 100 mg PO TID 12/04/16 [History] Ergocalciferol (VITAMIN D2) [Vitamin D2] 50,000 unit PO MO 12/04/16 [History] Trazodone HCl 150 - 300 mg PO HS 12/04/16 [History] Vitamin B Complex [B Complex] 1 each PO DAILY 12/04/16 [History] hydrOXYzine HCl [Hydroxyzine HCl] 50 mg PO TID PRN 12/04/16 [History] 3 Allergy/AdvReac Type Severity Reaction Status Date / Time amitriptyline Allergy Anaphylaxis Verified 12/04/16 15:17 ibuprofen Allergy See Verified 12/04/16 15:17 Comments meloxicam Allergy Difficulty Verified 12/04/16 15:17 Breathing methocarbamol [From Robaxin] Allergy Difficulty Verified 09/28/17 15:17 Breathing naproxen Allergy See Verified 12/04/16 15:17 Comments NSAIDS (Non-Steroidal AdvReac See Verified 12/04/16 15:17 Anti-Inflamma Comments sulfamethoxazole AdvReac Hives Verified 12/04/16 15:17 [From Bactrim] Temazepam AdvReac See Verified 12/04/16 15:17 Comments tramadol [From Ultram] AdvReac See Verified 12/04/16 15:17 Comments trimethoprim [From Bactrim] AdvReac Hives Verified 12/04/16 15:17 All Systems PM: A 10-system review of systems was performed and is negative for pertinent findings except as documented above in the HPI. Review of systems: Complains of headaches, no chest pain, no abdominal pain, no dysuria, other systems out of the 10 review were negative - Constitutional Vitals: Temp Pulse Resp BP Pulse Ox 97.7 F 73 18 108/58 98 12/04/16 15:17 12/04/16 17:42 12/04/16 17:42 12/04/16 17:42 12/04/16 17:42 General appearance: Present: A&O X 3, morbidly obese - Head Head exam: Present: atraumatic, normocephalic - Eye Eye exam: Present: PERRL, conjuntiva pink, sclera anicteric Pupils: Present: PERRL - Neck Neck exam general surgery: Present: supple, trachea midline. Absent: lymphadenopathy - Respiratory Respiratory exam: Present: CTAB, rales (Bilateral diffuse crackles). Absent: accessory muscle use, rhonchi, wheezes - Cardiovascular Cardiovascular exam: Present: RRR, +S1, +S2. Absent: diastolic murmur, gallop, rubs, systolic murmur - GI/Abdominal GI/Abdominal exam: Present: normal bowel sounds, soft, no peritoneal signs. Absent: distended, tenderness - Extremities Exam Extremities exam: Present: warm, radial pulses palpable and symmetrical. Absent : calf tenderness, cyanotic, pedal edema - Neurological Exam Neurological exam: Present: CN II-XII intact, oriented X3, no focal deficits. Absent: pronater drift, facial droop, speech deficit - Skin Skin exam: Present: dry, intact Internal Med - H&P Results - Labs CBC & Chem 7: 12/04/16 15:45 12/04/16 15:45
[2016-12-04] MEDS ORDERED: *HR* Dextrose 50 % in Water (Syg) 50 ML SYRINGE IVP PRN (18:36)
[2016-12-04] MEDS ORDERED: Dextrose Gel 15 GM PO PRN ×2 (18:36)
[2016-12-04] MEDS ORDERED: D5% in Water 1,000 ML IVC PRN (18:36)
[2016-12-04] MEDS: Gabapentin 400 MG CAPSULE PO SCH (21:35)
[2016-12-04] MEDS: risperiDONE 1 MG TABLET PO SCH (21:35)
[2016-12-04] MEDS: *HR* Heparin 5,000 UNIT/ML VIAL SQ SCH (21:36)
[2016-12-04] MEDS: Insulin LISPRO 300 UNITS/3 ML VIAL SQ SCH (21:41)
[2016-12-04] MEDS: *HR* OxyCODONE/APAP 7.5/325 TABLET PO PRN (22:24)
[2016-12-05 04:52] LABS: BUN/Creatinine Ratio 14 (6-26); Blood Urea Nitrogen 11 mg/dL (7-20); Calcium 9.3 mg/dL (8.6-10.8); Carbon Dioxide 26 mEq/L (19-29); Chloride 108 mEq/L (98-109); Glucose 102 mg/dL (70-99); Osmolality,Calculated 294 (280-300); Sodium 142 mEq/L (136-145); eGFR For African Americans > 60 (> 60); eGFR For Non-African Americans > 60 (> 60)
[2016-12-05] MEDS: *HR* Heparin 5,000 UNIT/ML VIAL SQ SCH ×3 (05:39→21:26)
[2016-12-05] MEDS ORDERED: Regadenoson 0.4 MG/5 ML SYRINGE IVP ONE (06:16)
[2016-12-05] MEDS: Insulin LISPRO 300 UNITS/3 ML VIAL SQ SCH ×3 (08:19→16:52)
--- NOTE | 2016-12-05 08:41 | Cardiology Consult Note ---
<Danilo Ventura - Last Filed: 12/05/16 13:47> Date of Encounter: 12/05/16 Time of Encounter: 08:35 Assessment and Plan (1) Chest pain Current Visit: Yes Status: Acute Per Cardiology: Atypical symptoms occurring briefly with palpitations. Risk factors for CAD include: HTN, HLD, Nicotine abuse, +FH. Troponins negative x 2. Had negative nuclear stress test July 2012. No previous cath noted at [facility]. Recent Echo 03/2016: LVEF 55-60%, No significant valvular dysfunction, Mild pulmonary hypertension, All wall segments showed normal motion. Stress test pending already ordered by primary service. Further recs after stress test. Qualifiers: Chest pain type: unspecified Qualified Code(s): R07.9 - Chest pain, unspecified (2) Near syncope Current Visit: Yes Status: Acute Per Cardiology: Reportedly had 1 syncopal event and 3 other near syncopal events. Had Tilt Table 11/2009: CONCLUSION: This tilt table test is over with benign findings. It is negative for vasovagal response, negative for postural orthostatic hypotension; however, there is a mild orthostatic hypotension due to the progressive drop in the blood pressure over 40 minutes by 20 mmHg in the systolic blood pressure. Probably the patient has mild dehydration and medications are to be reviewed. Tele reviewed with no events, no significant bradycardia, no significant pauses , no arrhythmias, very rare PVC. Currently wearing event monitor. Cardiology office note from Dr. Bradford reviewed and it appears patient had one episode of sinus pause and severe bradycardia while sleeping-- suspect related to obstructive sleep apnea. Recommend compliance with BiPap at home-- reports was able to previously tolerate CPAP (consider switching to improve likelihood of compliance). No carotid bruits noted. No previous CD noted. Orthos noted as follows: Selected Entries 12/05/16 08:20 12/05/16 10:21 Pulse Rate [Orthostatic Lying Left Arm] 71 71 Pulse Rate [Orthostatic Sitting Left Arm] 86 76 Pulse Rate [Orthostatic Standing Left Arm] 99 95 Blood Pressure [Orthostatic Lying Left Arm] 111/71 111/64 Blood Pressure [Orthostatic Sitting Left Arm] 131/76 127/70 Blood Pressure [Orthostatic Standing Left Arm] 100/60 115/65 Suspect cause of her near-syncope events. (3) Bradycardia Current Visit: Yes Status: Chronic Per Cardiology: Bradycardia noted on event monitor during nocturnal hours. No current significant bradycardia noted during continue to monitor telemetry. Patient continuing to wear an event monitor as well. Discussion w patient/family: The assessment and plan as outlined above was discussed with the patient who expressed understanding and agreement. All questions were answered. Thank you for involving us in the care of your patient. Please call with any questions. History of Present Illness Consult date: 12/05/16 Consult reason: CP and Near Syncope Chief complaint: CP, Dizziness History of present illness: Ms. Olivia is a 56 year old female with a relevant PMH: diabetes type 2 not insulin-dependent, COPD not oxygen dependent, asthma, seizure disorder, cancer ( Cervical cancer, no history of chemotherapy), GERD, hyperlipidemia, hypertension ,TIA, anxiety, depression, bipolar disorder, remote history of cocaine, marijuana abuse and alcohol abuse, fibromyalgia, suicidal attempts in the past. Cardiology Consult for CP, Near Syncope, and concerns of bradycardia. Patient reports symptoms over the past to 3 weeks of overall increased fatigue from baseline, short of breath at rest and with exertion from baseline, and midsternal chest heaviness/pressure with palpitations that lasts for a few seconds and subsides. She reports with the chest discomfort no radiation to arm or neck or jaw. She denies any other accompanying symptoms. She reports she believes she had a catheterization many years ago with no stenting. She does report was treated recently for pneumonia as outpatient and just completed antibiotics last week. Does report intermittent fevers and chills. Denies any nausea, vomiting, diarrhea. Denies any active bleeding or blood loss. Regarding dizziness. She reports no event where she was driving and felt dizzy and lightheaded and pulled off the side of the road and believes she passed out behind the wheel and awakened about 45 minutes later. She reports 3 other episodes of dizziness and lightheadedness with feeling like she was going to pass out, however symptoms subsided. She reports currently wearing a 4 week event monitor. Saw cardiology yesterday, Dr. Bradford, for concerns of bradycardia on monitor that occurred at night. She reports history of sleep apnea, however not presently compliant and cannot tolerate BiPAP. She reports she continues to smoke 1-1/2 packs per day for 40 years. She reports family history of CAD with mother with IA, father reportedly from IA at age 70 and brother with stenting in his late 40s. Past Med Surg Social Fam HX - Past Medical History Attestation: Yes The following information was validated with the patient. Source: patient, old records reviewed Medical history: asthma, cancer, COPD, diabetes, fibromyalgia, GERD, hyperlipidemia, hypertension, malignancy, seizures, TIA, other Psychiatric history: anxiety, depression, prior suicide attempt - Past Surgical History Surgical History: cholecystectomy, hysterectomy, knee replacement, orthopedic, other, other - Social History Smoking Status: Current every day smoker Packs per day: 1.5 Smokeless Tobacco Status: No Alcohol use: none Drug use: none - Family History Mother Hx Family Cardiac Disorders: Yes Hx Family Cancer: Yes Hx Family Endocrine Disorder: Yes Medications and Allergies Aspirin Enteric Coated [Aspirin EC] 81 mg PO DAILY 01/26/15 [History] Escitalopram [Lexapro] 20 mg PO DAILY 01/26/15 [History] Gabapentin [Neurontin] 1,200 mg PO TID 01/26/15 [History] Rosuvastatin Calcium [Crestor] 10 mg PO HS 01/26/15 [History] Zonisamide [Zonegran] 100 mg PO QAM 01/26/15 [History] Zonisamide [Zonegran] 150 mg PO HS 01/26/15 [History] risperiDONE [RisperDAL] 1 mg PO HS 01/26/15 [History] Aclidinium [place] [Tudorza Pressair] 1 puff IH BID 12/14/15 [History] Albuterol Sulfate [Ventolin Hfa] 2 puff IH Q4H PRN 12/14/15 [History] Diclofenac Sodium [Voltaren] 1 appl TP QID PRN 12/14/15 [History] Fluticasone/Salmeterol [Advair 500-50 Diskus] 1 puff IH BID 12/14/15 [History] Ipratropium/Albuterol Neb [Duoneb] 3 ml IH Q6HR 12/14/15 [History] Lidocaine Patch [Lidoderm 5% patch] 1 patch TP DAILY PRN 12/14/15 [History] Melatonin 10 mg PO HS PRN 12/14/15 [History] Nitroglycerin [Nitrostat] 0.4 mg SL Q5M PRN 12/14/15 [History] Oxycodone HCl/Acetaminophen [Percocet 7.5-325 mg Tablet] 1 tab PO Q6H PRN [History] metFORMIN [Glucophage] 1,000 mg PO BIDWM 12/14/15 [History] Esomeprazole Magnesium [Nexium] 40 mg PO DAILY 06/06/16 [History] Buspirone HCl [Buspar] 20 mg PO BID 12/04/16 [History] Calcium Polycarbophil [Fibercon] 625 mg PO QID 12/04/16 [History] Docusate [Colace] 100 mg PO TID 12/04/16 [History] Ergocalciferol (VITAMIN D2) [Vitamin D2] 50,000 unit PO MO 12/04/16 [History] Vitamin B Complex [B Complex] 1 each PO DAILY 12/04/16 [History] hydrOXYzine HCl [Hydroxyzine HCl] 50 mg PO TID PRN 12/04/16 [History] Pramipexole Di-HCl [Pramipexole Dihydrochloride] 0.125 mg PO QPM #0 12/06/16 [Rx ] 3 Allergy/AdvReac Type Severity Reaction Status Date / Time amitriptyline Allergy Anaphylaxis Verified 12/04/16 15:17 ibuprofen Allergy See Verified 12/04/16 15:17 Comments meloxicam Allergy Difficulty Verified 12/04/16 15:17 Breathing methocarbamol [From Robaxin] Allergy Difficulty Verified 12/04/16 15:17 Breathing naproxen Allergy See Verified 12/04/16 15:17 Comments NSAIDS (Non-Steroidal AdvReac See Verified 12/04/16 15:17 Anti-Inflamma Comments sulfamethoxazole AdvReac Hives Verified 12/04/16 15:17 [From Bactrim] Temazepam AdvReac See Verified 12/04/16 15:17 Comments tramadol [From Ultram] AdvReac See Verified 12/04/16 15:17 Comments trimethoprim [From Bactrim] AdvReac Hives Verified 12/04/16 15:17 All Systems Review: A 10-system review of systems was performed and is negative for pertinent findings except as documented above in the HPI. - Constitutional Constitutional: fatigue - Cardiovascular Cardiovascular: as per HPI, chest pain at rest, chest pain with exertion, dyspnea at rest, dyspnea on exertion, lightheadedness, palpitations Physical Examination Vital Signs, Last 4 Hours Temp Pulse Pulse Pulse Pulse Resp BP 12/05/16 08:20 71 86 99 12/05/16 07:33 98.4 F 57 15 117/74 BP BP BP Pulse Ox 12/05/16 08:20 111/71 131/76 100/60 12/05/16 07:33 92 Selected Entries 12/05/16 08:20 12/05/16 10:21 Pulse Rate [Orthostatic Lying Left Arm] 71 71 Pulse Rate [Orthostatic Sitting Left Arm] 86 76 Pulse Rate [Orthostatic Standing Left Arm] 99 95 Blood Pressure [Orthostatic Lying Left Arm] 111/71 111/64 Blood Pressure [Orthostatic Sitting Left Arm] 131/76 127/70 Blood Pressure [Orthostatic Standing Left Arm] 100/60 115/65 General: Conversant, No Apparent Distress HEENT: Atraumatic, Normocephaly, Mucus Membranes Moist Neck: No JVD, Normal carotid pulses Cardiac: Reg Rate and Rhythm, Normal S1 and S2, No Murmur Lungs: Normal Breath Sounds, Other (Scattered rhonchi throughout, mild expiratory wheezes noted to bilateral bases) Neuro: Alert and responsive, No focal deficits noted Abdomen: Soft, Non-Tender Skin: No rashes noted on visualized skin Musculoskeletal: No Chest Wall Tenderness Extremities: No Edema, Normal Pulses Results 12/04/16 15:45 12/05/16 03:28 Lab Results Laboratory Tests 12/04/16 12/04/16 12/04/16 15:45 15:45 20:43 AST 13 ALT 17 Troponin I 0.00 0.01 TSH 0.807 ITS Impressions Chest X-Ray 12/04/16 17:01 IMPRESSION: No acute cardiopulmonary disease. D/ / Boyd Flores MD / Boyd Flores MD Interpreting Provider: Boyd Flores MD 03/2016: Impressions: Normal left ventricular size and systolic function, LVEF 55-60%. Normal left ventricular diastolic function. Normal right ventricular size and function. No significant valvular dysfunction. Mild pulmonary hypertension. Estimated RVSP = 40 mmHg. Left Ventricular Wall Motion: Rest Echo Findings All wall segments showed normal motion. HOLTER 11/2009: CONCLUSION: 1. This is a benign Holter monitor finding, normal sinus rhythm with appropriate rate. 2. Minimal abnormality for occasional ventricular ectopic beats and occasional supraventricular ectopic beats, single episode of nonsustained ventricular tachycardia composed of only three beats. 3. Holter monitor EKG and symptom correlation does not show the symptoms of the patient are not explained by the findings on the Holter monitor which was basically normal sinus rhythm. There were no ectopic beats when the patient was having the symptoms. 4. Holter monitor findings do not explain the symptoms of this patient, so needs further clinical correlation. Active Medications Acetaminophen (Tylenol) 650 mg PO Q6HR PRN PRN Reason: Mild Pain (1-3) Stop: 06/05/17 18:19 Aspirin (Aspirin Ec) 81 mg PO DAILY [facility] Stop: 06/06/17 09:01 Atorvastatin Calcium (Lipitor) 20 mg PO HS [facility] Stop: 06/05/17 21:01 Last Admin: 12/04/16 21:34 Dose: 20 mg Buspirone HCl (Buspar) 20 mg PO BID [facility] Stop: 06/05/17 21:01 Last Admin: 12/04/16 21:34 Dose: 20 mg Dextrose/Water (Dextrose 50% (Syg)) 25 ml IVP AD PRN PRN Reason: Hypoglycemia Stop: 06/05/17 18:37 Docusate Sodium (Colace) 100 mg PO TID [facility] PRN Reason: Protocol Stop: 06/05/17 21:01 Last Admin: 12/04/16 21:34 Dose: 100 mg Escitalopram Oxalate (Lexapro) 20 mg PO DAILY [facility] Stop: 06/06/17 09:01 Gabapentin (Neurontin) 1,200 mg PO TID [facility] Stop: 06/05/17 21:01 Last Admin: 12/04/16 21:35 Dose: 1,200 mg Glucagon (Glucagen) 1 mg IM ONCE PRN PRN Reason: Hypoglycemia Stop: 06/05/17 18:37 Glucose (Gluctose) 15 gm PO ONCE PRN PRN Reason: Hypoglycemia Stop: 06/05/17 18:37 Glucose (Gluctose) 30 gm PO ONCE PRN PRN Reason: Hypoglycemia Stop: 06/05/17 18:37 Heparin Sodium (Porcine) (Heparin) 5,000 unit SQ Q8HCO [facility] Stop: 06/05/17 22:01 Last Admin: 12/05/16 05:39 Dose: 5,000 unit Dextrose (Dextrose 5%) 1,000 mls @ 100 mls/hr IVC .Q10H PRN PRN Reason: HYPOGLYCEMIA Stop: 06/05/17 18:37 Insulin Human Lispro (Humalog) 0 units SQ TIDAC BRIAN PRN Reason: Protocol Stop: 06/05/17 18:46 Last Admin: 12/05/16 08:19 Dose: Not Given Naloxone HCl (Narcan) 0.4 mg IVP Q2MIN PRN PRN Reason: Opioid Reversal Stop: 06/05/17 18:19 Nitroglycerin (Nitroglycerin) 0.4 mg SL Q5M PRN PRN Reason: Chest Pain Stop: 06/05/17 18:22 Omeprazole (Prilosec) 20 mg PO DAILY@0630 [facility] PRN Reason: Protocol Stop: 06/06/17 06:31 Last Admin: 12/05/16 05:40 Dose: 20 mg Omeprazole (Prilosec) 40 mg PO DAILY [facility] Stop: 06/06/17 09:01 Ondansetron HCl (Zofran) 4 mg IVP Q8HR PRN PRN Reason: Nausea And Vomiting Stop: 06/05/17 18:19 Oxycodone/Acetaminophen (Percocet 7.5/325) 1 each PO Q6HR PRN PRN Reason: Pain Stop: 06/05/17 22:01 Last Admin: 12/04/16 22:24 Dose: 1 each Pharmacy Profile Note (Patient Taking Own Medication) 0 each TP QID PRN PRN Reason: moderate pain Pramipexole Dihydrochloride (Mirapex) 0.125 mg PO BID [facility] Stop: 06/05/17 21:01 Last Admin: 12/04/16 21:34 Dose: 0.125 mg Risperidone (Risperdal) 1 mg PO HS [facility] Stop: 06/05/17 21:01 Last Admin: 12/04/16 21:35 Dose: 1 mg Zonisamide (Zonegran) 150 mg PO HS [facility] Stop: 06/05/17 21:01 Last Admin: 12/04/16 21:35 Dose: 150 mg Zonisamide (Zonegran) 100 mg PO QAM [facility] Stop: 06/06/17 09:01 - Imaging and Cardiology Chest Xray: report reviewed Stress Test: report reviewed Echo: report reviewed - EKG Interpretation EKG results cardiology: personally reviewed (Sinus rhythm in the 60s), normal ECG, sinus rhythm, no diagnostic ischemia, other (24-hour Holter monitor. Temperature rate 67, sinus rhythm, slowest heart rate 48 during nocturnal hours , no significant pauses, very rare PVC) Consult Discharge Plan - Plan Instructions: Chest Pain (DC), BiPAP, Compliance Reviewer (GEN) Additional Instructions: Follow-up with primary care physician within the next 7 days, discontinue trazodone, decreased dose of pramipexole and take it only at night, consider switching to a different medication for restless leg syndrome with primary care physician. Follow-up appointments: If there is not an appointment listed below, please call your physician and schedule a follow-up appointment. If you have congestive heart failure and your symptoms return, make an appointment with your physician. Medication List: Carry an up to date list of medications you are taking at all time. We have given you an updated medication list including any new medications that you have been prescribed. Please provide that list to your primary provider Symptoms: If your condition changes or you experience any of the following symptoms, notify your physician immediately: Unusual or worsening pain, fever, persistent nausea and vomiting, bleeding, increase in swelling (especially in your legs), sudden weight gain, extreme dizziness, chest pain, increased drainage or redness from a wound or incision. Go to the emergency department if you experience a problem with breathing. Weights: If you have a history of swelling or shortness of breath, weigh yourself daily and notify your physician if you have a weight gain of two or more pounds in one day or 5 or more pounds in a week. If you experience any of the warning signs for stroke: Sudden numbness or weakness of the face, arm or leg; especially on one side of the body, sudden confusion, trouble speaking or understanding, sudden trouble seeing in one or both eyes, sudden trouble walking, dizziness, loss of balance or coordination, sudden sever headache with no cause; Call 911 or go to the emergency room. Stroke is a medical emergency. Some risk factors for stroke: Age, cigarette smoking, diabetes, excessive alcohol consumption, family history , high blood pressure, overweight, physical inactivity, prior stroke, heart attack, diagnosis of carotid artery stenosis or other artery disease. If you smoke, STOP: Smoking or tobacco use significantly increases your risk of heart and lung disease. Your chance of disease greatly increases if you continue to smoke. For more information, call the [place] tobacco quit line for smoking cessation 4-710 QUIT-NOW ( ) Referrals: Juan Manuel Garcia, [facility] [facility]ER [Primary Care Provider] - 12/17/16 9:00 am <Usman Locke - Last Filed: 12/06/16 15:26> Date of Encounter: 12/05/16 Time of Encounter: 16:20 Assessment and Plan Discussion w patient/family: The assessment and plan as outlined above was discussed with the patient and/or family members who expressed understanding and agreement. All questions were answered. Thank you for involving us in the care of your patient. Please call with any questions. History of Present Illness History of present illness: Ms. Olivia is a 56 year old female All Systems Review: A 10-system review of systems was performed and is negative for pertinent findings except as documented above in the HPI. Physical Examination Vital Signs, Last 4 Hours Temp Pulse Resp BP Pulse Ox 12/06/16 12:22 98.2 F 58 18 119/66 98 Results 12/04/16 15:45 12/05/16 03:28 - Attending Attestation PT seen and examined, chart reviewed independently, essentially agree with findings as documented, my evaluation as follows: IMP/Plan: 1. Chest pain, very atypical, associated only with palpitations, cardiac enzemes and EKG negative for indications of acute myocardial necrosis, very unlikely acute coronary syndrome, last stress 2009, was normal, will repeat, requires two day protocol. 2. Near syncope: Four reported events, no precipitating or resolving factors, has a monitor in place to evaluate symptoms, has one documented sinus pause and sinus bradycardia while sleeping, no significant arrhythmia while awake. Pt is non-compliant with CRISTIANA tx with CPAP, hypoxia etiology of nightime bradycardia, encouraged to use CPAP as prescribed, consider change to BIPAP if indicated. Will continue to monitor for daytime arhythmia. 3. Tobacco abuse, continues to smoke 1.5 packs cigs q d against medical advice, recommend smoking sensation 4. Orthostatic hypotension: positive orthostatics in 2009, now asymptomatic. Will follow with you, further recommendations following imaging results.
--- NOTE | 2016-12-05 09:37 | Internal Med Progress Note ---
Date of Encounter: 12/05/16 Time of Encounter: 09:34 - Assessment and plan (1) Syncope Current Visit: Yes Status: Acute Assessment and plan: Syncopal episodes likely secondary to symptomatic bradycardia/orthostatic hypotension diastolic BP dropped >10 points Continue telemetry, fall precautions Discontinue trazodone as this can cause arrhythmias and orthostatic hypotension , hold pramipexole due to orthostatic hypotension (consider other options for restless leg Sd) COnsider stopping risperidal Repeat orthostatics Cardiology recommended stress test , pending Ordered limited echocardiogram and Lasix as the patient seems to be congested Qualifiers: Syncope type: unspecified Qualified Code(s): R55 - Syncope and collapse (2) Seizure disorder Current Visit: No Status: Chronic Assessment and plan: continue home meds (3) Hyperlipidemia Current Visit: No Status: Chronic Qualifiers: Hyperlipidemia type: unspecified Qualified Code(s): E78.5 - Hyperlipidemia , unspecified (4) Chest pain Current Visit: Yes Status: Acute Assessment and plan: stress test Qualifiers: Chest pain type: unspecified Qualified Code(s): R07.9 - Chest pain, unspecified (5) Diabetes mellitus Current Visit: No Status: Chronic Assessment and plan: Hold metformin, continue insulin sliding scale Qualifiers: Diabetes mellitus type: type 2 Diabetes mellitus complication status: with unspecified complications Diabetes mellitus custodial insulin use: without custodial use Qualified Code(s): E11.8 - Type 2 diabetes mellitus with unspecified complications (6) Bronchitis Current Visit: No Status: Chronic Assessment and plan: start azithromycin - Subjective Interval history: feeling dizzy when standing up, coughing up yellowish phlegm, nauseated, has headache, denies CP, no fever or dysuria - Constitutional Vitals: Temp Pulse Resp BP Pulse Ox 98.4 F 71 15 111/71 92 12/05/16 07:33 12/05/16 08:20 12/05/16 07:33 12/05/16 08:20 12/05/16 07:33 General appearance: Present: A&O X 3, morbidly obese - Head Head exam: Present: atraumatic, normocephalic - Eye Eye exam: Present: PERRL, conjuntiva pink, sclera anicteric Pupils: Present: PERRL - Neck Neck exam general surgery: Present: supple, trachea midline. Absent: lymphadenopathy - Respiratory Respiratory exam: Present: CTAB, rales (diffuse ronchi and bibasilar crackles). Absent: accessory muscle use, rhonchi, wheezes - Cardiovascular Cardiovascular exam: Present: RRR, +S1, +S2. Absent: diastolic murmur, gallop, rubs, systolic murmur - GI/Abdominal GI/Abdominal exam: Present: normal bowel sounds, soft, no peritoneal signs. Absent: distended, tenderness - Extremities Exam Extremities exam: Present: warm, radial pulses palpable and symmetrical. Absent : calf tenderness, cyanotic, pedal edema - Neurological Exam Neurological exam: Present: CN II-XII intact, oriented X3, no focal deficits. Absent: pronater drift, facial droop, speech deficit - Skin Skin exam: Present: dry, intact Internal Medicine: Result - Labs CBC & Chem 7: 12/04/16 15:45 12/05/16 03:28 Labs: BMP 12/05/16 03:28 Sodium 142 Potassium 4.0 Chloride 108 Carbon Dioxide 26 BUN 11 Creatinine 0.81 Glucose 102 H Calcium 9.3 Cardiac Enzymes 12/04/16 Range/Units 20:43 Troponin I 0.01 (0-0.03) ng/mL Consult Discharge Plan - Plan Referrals: Juan Manuel Garcia CNP [Primary Care Provider] - 12/17/16 9:00 am
[2016-12-05] MEDS: Azithromycin 500 MG in D5% in Water 250 ML IVPB SCH (10:37)
[2016-12-05] MEDS: Aspirin Enteric Coated 81 MG Tablet PO SCH (13:51)
[2016-12-05] MEDS: Gabapentin 400 MG CAPSULE PO SCH ×3 (13:53→21:26)
[2016-12-05] MEDS: *HR* OxyCODONE/APAP 7.5/325 TABLET PO PRN ×2 (13:55→21:30)
--- NOTE | 2016-12-05 18:07 | Electrocardiograph Report ---
[place] [id number] Test Date: 2016-12-04 Pat Name: Verónica Olivia Department: 104 Room: 3B24 Gender: F Nurse Extern: PEDRO : 1960 Requested By: Addy James Order Number: [id number] Reading MD: Rosetta Javier Measurements Intervals [place] Rate: 62 P: 9 TX: 165 QRS: -3 QRSD: 92 T: 18 QT: 403 QTc: 408 Interpretive Statements SINUS RHYTHM Electronically Signed On 12-05-2016 18:05:33 EDT by Rosetta Javier
[2016-12-05] MEDS ORDERED: Ipratropium/Albuterol Neb 3 ML IH PRN (20:36)
[2016-12-05] MEDS: risperiDONE 1 MG TABLET PO SCH (21:25)
[2016-12-06] MEDS: *HR* Heparin 5,000 UNIT/ML VIAL SQ SCH (05:24)
[2016-12-06] MEDS: Insulin LISPRO 300 UNITS/3 ML VIAL SQ SCH ×2 (08:30→12:19)
[2016-12-06] MEDS: Aspirin Enteric Coated 81 MG Tablet PO SCH (09:11)
[2016-12-06] MEDS: Gabapentin 400 MG CAPSULE PO SCH (09:11)
[2016-12-06] MEDS: Azithromycin 500 MG in D5% in Water 250 ML IVPB SCH (09:12)
[2016-12-06] MEDS: *HR* OxyCODONE/APAP 7.5/325 TABLET PO PRN (09:17)
--- NOTE | 2016-12-06 10:32 | Nuclear Medicine Stress Report ---
Regadenoson Nuclear 2 Name: Verónica Olivia Date of Study: 12/05/2016 Date: 1960 Ht: 64.0 in Medical Record#: [id number] Age: 56 Wt: 236.0 lb Gender: Female Order #: [id number] Location: [facility] Room: [facility] Supervising Provider: Danilo Ventura CNP Reading Physician: Celso Mcclelland MD, [facility] Ordering Physician: Coleen Campos CNP Stress Technologist: Jelly Dumont RRT Chief Enterprise Architect: Sarah Gilman Indications: Chest Pain Impression: Perfusion imaging was negative for diagnostic ischemia or infarct. Small mild fixed inferior and small mild fixed apical defect consistent with artifact Pharmacologic ECG was non diagnostic for ischemia. Patient had chest pain with before and during stress. No arrhythmias noted with stress. Clinical correlation is advised Gated EF = 70%. The LV is not dilated. There is no evidence of TID. No high risk features noted on this stress study History: Diabetes Hypercholesteremia History of Smoking Stress Test Summary: Stress Test Type: Pharmacologic Regadenoson 0.4mg/5ml given IV Baseline Information: Initial Heart Rate: 68 Blood Pressure: 100/70 Stress Information: Test Terminated Due to (primary): As per protocol Maximum Blood Pressure: 108/64 Maximum Heart Rate: 116 Percent Maximum Heart Rate Achieved: 70 Double Product: [id number] METS Reached: 1 Symptoms: Chest pain Nuclear Summary: SPECT myocardial perfusion imaging using Tc99m Sestamibi given intravenously was performed at rest and following cardiac stress testing. The resting images were obtained following initial dose of 35.6 mCi. Following stress an additional dose of 33.8 mCi was given at peak exercise or 30 seconds post regadenoson infusion. Medication Given: Time Medication Dose Units Route Findings: Stress Note * Resting ECG demonstrated normal sinus rhythm. * No baseline arrhythmias were noted. * Pharmacologic stress ECG is non diagnostic for ischemia due to failure to reach target heartrate. * No arrhythmias were noted during stress. * Patient had chest pain/pressure during stress. Hemodynamic responses * Normal hemodynamic responses to pharmacologic stress. Gated EF > 70% * Gated EF > 70%. Left Ventricle * The left ventricle is not dilated. NORMALS * Normal wall motion. Study Quality * Study quality is average. TID * No evidence of transient ischemic dilatation. Apical Perfusion Rest * The apex segment shows a mild reduction in perfusion. Apical Perfusion Stress * The apex segment shows a mild reduction in perfusion. Inferior Perfusion Rest * The mid inferior segment shows a mild reduction in perfusion. Inferior Perfusion Stress * The inferior segment shows a mild reduction in perfusion. Updated by Celso Mcclelland MD, FACC on 12/06/2016 10:19:14 AM electronically signed on 12/06/2016 10:27:00 AM with status of Final
[2016-12-06 12:23] VITALS: BP 119/66
--- NOTE | 2016-12-06 12:38 | Cardiology Progress Note ---
Date of Encounter: 12/06/16 Time of Encounter: 12:00 Assessment and Plan (1) Chest pain Current Visit: Yes Status: Acute Per Cardiology: -Atypical symptoms occurring briefly with palpitations. -Risk factors for CAD include: HTN, HLD, Nicotine abuse, +FH. -Troponins negative x 2. -Had negative nuclear stress test July 2012. No previous cath noted at [facility]. - Recent Echo 03/2016: LVEF 55-60%, No significant valvular dysfunction, Mild pulmonary hypertension, All wall segments showed normal motion. -Stress with perfusion imaging negative for ischemia or infarct. Gated EF 70%. -Denies chest pain overnight. -Cardiology will sign off and will follow in outpatient setting. Follow up set. Qualifiers: Chest pain type: unspecified Qualified Code(s): R07.9 - Chest pain, unspecified (2) Near syncope Current Visit: Yes Status: Acute Per Cardiology: -Reportedly had 1 syncopal event and 3 other near syncopal events. -Had Tilt Table 11/2009: CONCLUSION: This tilt table test is over with benign findings. It is negative for vasovagal response, negative for postural orthostatic hypotension; however, there is a mild orthostatic hypotension due to the progressive drop in the blood pressure over 40 minutes by 20 mmHg in the systolic blood pressure. Probably the patient has mild dehydration and medications are to be reviewed. -Tele reviewed with no events, no significant bradycardia, no significant pauses , no arrhythmias, very rare PAC. -Currently wearing event monitor. Cardiology office note from Dr. Bradford reviewed and it appears patient had one episode of sinus pause and severe bradycardia while sleeping-- suspect related to obstructive sleep apnea. Recommend compliance with BiPap at home-- reports was able to previously tolerate CPAP (consider switching to improve likelihood of compliance). -No carotid bruits noted. No previous CD noted. -Orthos noted as follows: Selected Entries 12/05/16 08:20 12/05/16 10:21 Pulse Rate [Orthostatic Lying Left Arm] 71 71 Pulse Rate [Orthostatic Sitting Left Arm] 86 76 Pulse Rate [Orthostatic Standing Left Arm] 99 95 Blood Pressure [Orthostatic Lying Left Arm] 111/71 111/64 Blood Pressure [Orthostatic Sitting Left Arm] 131/76 127/70 Blood Pressure [Orthostatic Standing Left Arm] 100/60 115/65 -Stress negative. -Denies current dizziness, lightheadedness. -Cardiology will sign off and will follow in outpatient setting. Follow up set. -Recommend compliance with Bipap. -Encouraged patient to stay well hydrated and change positions slowly. Discussion w patient/family: The assessment and plan as outlined above was discussed with the patient who expressed understanding and agreement. All questions were answered. Thank you for involving us in the care of your patient. Please call with any questions. Discussed and reviewed with . Subjective Principal diagnosis: near syncope Interval history: Patient states she feels good this morning. Patient denies chest pain, syncope, or near syncope overnight. Patient denies dizziness or lightheadedness. Objective Vital Signs, Last 4 Hours Temp Pulse Resp BP Pulse Ox 12/06/16 12:22 98.2 F 58 18 119/66 98 General: Conversant, No Apparent Distress HEENT: Atraumatic, Normocephaly, Mucus Membranes Moist Neck: No JVD, Normal carotid pulses Cardiac: Reg Rate and Rhythm, Normal S1 and S2, No Murmur Lungs: Normal Breath Sounds, No Wheeze, Rales, Rhonchi Neuro: Alert and responsive, No focal deficits noted Abdomen: Soft, Non-Tender Skin: No rashes noted on visualized skin Musculoskeletal: No Chest Wall Tenderness Extremities: No Clubbing, No Cyanosis, No Edema, Normal Pulses Results 12/04/16 15:45 12/05/16 03:28 ITS Impressions Chest X-Ray 12/04/16 17:01 IMPRESSION: No acute cardiopulmonary disease. D/ / Boyd Flores MD / Boyd Flores MD Interpreting Provider: Boyd Flores MD Active Medications Acetaminophen (Tylenol) 650 mg PO Q6HR PRN PRN Reason: Mild Pain (1-3) Stop: 06/05/17 18:19 Albuterol/Ipratropium (Duoneb) 3 ml IH [id number] PRN PRN Reason: Shortness Of Breath/Wheezing Stop: 06/06/17 20:37 Last Admin: 12/05/16 21:16 Dose: 3 ml Aspirin (Aspirin Ec) 81 mg PO DAILY BRIAN Stop: 06/06/17 09:01 Last Admin: 12/06/16 09:11 Dose: 81 mg Atorvastatin Calcium (Lipitor) 20 mg PO HS [facility] Stop: 06/05/17 21:01 Last Admin: 12/05/16 21:25 Dose: 20 mg Buspirone HCl (Buspar) 20 mg PO BID [facility] Stop: 06/05/17 21:01 Last Admin: 12/06/16 09:10 Dose: 20 mg Dextrose/Water (Dextrose 50% (Syg)) 25 ml IVP AD PRN PRN Reason: Hypoglycemia Stop: 06/05/17 18:37 Docusate Sodium (Colace) 100 mg PO TID [facility] PRN Reason: Protocol Stop: 06/05/17 21:01 Last Admin: 12/06/16 09:11 Dose: 100 mg Escitalopram Oxalate (Lexapro) 20 mg PO DAILY [facility] Stop: 06/06/17 09:01 Last Admin: 12/06/16 09:11 Dose: 20 mg Gabapentin (Neurontin) 1,200 mg PO TID [facility] Stop: 06/05/17 21:01 Last Admin: 12/06/16 09:11 Dose: 1,200 mg Glucagon (Glucagen) 1 mg IM ONCE PRN PRN Reason: Hypoglycemia Stop: 06/05/17 18:37 Glucose (Gluctose) 15 gm PO ONCE PRN PRN Reason: Hypoglycemia Stop: 06/05/17 18:37 Glucose (Gluctose) 30 gm PO ONCE PRN PRN Reason: Hypoglycemia Stop: 06/05/17 18:37 Heparin Sodium (Porcine) (Heparin) 5,000 unit SQ Q8HCO [facility] Stop: 06/05/17 22:01 Last Admin: 12/06/16 05:24 Dose: 5,000 unit Dextrose (Dextrose 5%) 1,000 mls @ 100 mls/hr IVC .Q10H PRN PRN Reason: HYPOGLYCEMIA Stop: 06/05/17 18:37 Azithromycin 500 mg/ Dextrose 250 mls @ 252 mls/hr IVPB Q24H [facility] Stop: 06/06/17 10:01 Last Admin: 12/06/16 09:12 Dose: 252 mls/hr Insulin Human Lispro (Humalog) 0 units SQ TIDAC [facility] PRN Reason: Protocol Stop: 06/05/17 18:46 Last Admin: 12/06/16 12:19 Dose: Not Given Naloxone HCl (Narcan) 0.4 mg IVP Q2MIN PRN PRN Reason: Opioid Reversal Stop: 06/05/17 18:19 Nitroglycerin (Nitroglycerin) 0.4 mg SL Q5M PRN PRN Reason: Chest Pain Stop: 06/05/17 18:22 Omeprazole (Prilosec) 20 mg PO DAILY@0630 BRIAN PRN Reason: Protocol Stop: 06/06/17 06:31 Last Admin: 12/06/16 05:25 Dose: 20 mg Omeprazole (Prilosec) 40 mg PO DAILY [facility] Stop: 06/06/17 09:01 Last Admin: 12/06/16 09:11 Dose: 40 mg Ondansetron HCl (Zofran) 4 mg IVP Q8HR PRN PRN Reason: Nausea And Vomiting Stop: 06/05/17 18:19 Oxycodone/Acetaminophen (Percocet 7.5/325) 1 each PO Q6HR PRN PRN Reason: Pain Stop: 06/05/17 22:01 Last Admin: 12/06/16 09:17 Dose: 1 each Pharmacy Profile Note (Patient Taking Own Medication) 0 each TP QID PRN PRN Reason: moderate pain Risperidone (Risperdal) 1 mg PO HS [facility] Stop: 06/05/17 21:01 Last Admin: 12/05/16 21:25 Dose: 1 mg Zonisamide (Zonegran) 150 mg PO HS [facility] Stop: 06/05/17 21:01 Last Admin: 12/05/16 21:26 Dose: 150 mg Zonisamide (Zonegran) [facility] [place] Stop: 06/06/17 09:01 Last Admin: 12/06/16 09:11 Dose: 100 mg Laboratory Tests 12/04/16 12/04/16 15:45 20:43 Troponin I 0.00 0.01 - Imaging and Cardiology Chest Xray: report reviewed Stress Test: report reviewed Echo: report reviewed - EKG Interpretation EKG results cardiology: other (Telemetry reviewed with average HR previous 12 hours noted to be 63, sinus rhythm. PACs noted.) Consult Discharge Plan - Plan Referrals: Juan Manuel Garcia, BREAKFAST MANAGER [Primary Care Provider] - 12/17/16 9:00 am
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
== END 2016-12-06 15:10 | disposition home or self-care (01) ==
LOC: 3BNU 15:08 → EMEROO 15:08 → SUATTDRO 17:14 → 3BNU 18:20
PROVIDERS: ADMIT Internal Medicine; ATTEND Internal Medicine

== ENCOUNTER 2019-06-02 20:37 | Inpatient (IN) ==
[2019-06-02] MEDS ORDERED: Naloxone 0.4 MG/ML INJ IVP PRN (22:19)
[2019-06-02] MEDS ORDERED: *HR* Dextrose 50 % in Water (Syg) 50 ML SYRINGE IVP PRN (22:23)
[2019-06-02] MEDS ORDERED: D5% in Water 1,000 ML IVC PRN (22:23)
[2019-06-02] MEDS ORDERED: Dextrose Gel 15 GM/37.5 ML TUBE PO PRN ×2 (22:23)
[2019-06-03] MEDS: Insulin LISPRO 300 UNITS/3 ML VIAL SQ SCH ×4 (00:12→17:06)
[2019-06-03] MEDS: Ipratropium/Albuterol Neb 3 ML IH SCH ×5 (00:13→16:11)
[2019-06-03] MEDS: MethylPREDNISolone 40 MG/ML VIAL IVP SCH ×5 (00:14→23:19)
[2019-06-03 01:36] LABS: Adenovirus Not Detected (Not Detect); Bordetella Pertussis Not Detected (Not Detect); Chlamydophila pneumoniae Not Detected (Not Detect); Coronavirus 229E Not Detected (Not Detect); Coronavirus HKU1 Not Detected (Not Detect); Coronavirus NL63 Not Detected (Not Detect); Coronavirus OC43 Not Detected (Not Detect); Human Metapneumovirus Not Detected (Not Detect); Human Rhinovirus/Enterovirus Not Detected (Not Detect); Influenza A Subtype 2009 H1 Not Detected (Not Detect); Influenza B Not Detected (Not Detect); Mycoplasma pneumoniae Not Detected (Not Detect); Parainfluenza Virus 1 Not Detected (Not Detect); Parainfluenza Virus 2 Not Detected (Not Detect); Parainfluenza Virus 3 Not Detected (Not Detect); Parainfluenza Virus 4 Not Detected (Not Detect); Respiratory Syncytial Virus Not Detected (Not Detect)
[2019-06-03 05:45] LABS: Basophils % 0.5 %; Eosinophils % 0.2 %; Hematocrit 42.8 % (35.3-44.9); Hemoglobin 13.3 g/dL (11.5-15.4); Immature Granulocytes % 0.3 % (0-4); Lymphocytes # 0.9 K/mcL (0.6-4.6); Lymphocytes % 15.8 %; Mean Corpuscular HGB Conc 31.1 g/dL (31.6-35.5); Mean Corpuscular Hemoglobin 29.8 pg (28.0-33.3); Mean Corpuscular Volume 95.7 fL (83.0-100.0); Mean Platelet Volume 10.1 fL (9.4-12.4); Monocytes # 0.1 K/mcL (0.0-1.3); Monocytes % 1.5 %; Neutrophils # 4.9 K/mcL (1.6-8.9); Platelet Count 194 K/mcL (140-400); Red Blood Count 4.47 M/mcL (3.82-4.97); Red Cell Distribution Width 13.9 % (11.5-14.5); Segmented Neutrophils % 81.7 %
[2019-06-03] MEDS ORDERED: *HR* Heparin 5,000 UNIT/ML VIAL SQ SCH (06:00)
[2019-06-03 06:04] LABS: BUN/Creatinine Ratio 12 (6-26); Blood Urea Nitrogen 8 mg/dL (6-20); Calcium 8.8 mg/dL (8.6-10.3); Carbon Dioxide 29 mEq/L (23-29); Chloride 108 mEq/L (98-107); Glucose 164 mg/dL (70-105); Osmolality,Calculated 292 (280-300); Potassium 4.4 mEq/L (3.5-5.1); Sodium 140 mEq/L (136-145); eGFR For African Americans > 60 (> 60); eGFR For Non-African Americans > 60 (> 60)
[2019-06-03 08:29] LABS: Estimated Average Glucose 131 mg/dl
[2019-06-03] MEDS: cefTRIAXone 1,000 MG in Water for inj. (sterile) 10 ML IVPB SCH (08:35)
[2019-06-03] MEDS: Azithromycin 500 MG in 0.9 % Sodium Chloride 250 ML IVPB SCH (08:42)
[2019-06-03] MEDS ORDERED: hydrOXYzine pamoate 25 MG CAPSULE PO PRN (11:39)
[2019-06-03] MEDS: *HR* Enoxaparin 40 MG/0.4 ML SYRINGE SQ SCH (13:57)
[2019-06-03] MEDS: Gabapentin 400 MG CAPSULE PO SCH ×2 (13:58→20:23)
[2019-06-03] MEDS: QUEtiapine Fumarate 25 MG TABLET PO SCH (20:22)
[2019-06-03] MEDS: Nicotine 21 MG PATCH.TD24 TD SCH (23:19)
[2019-06-04] MEDS: *HR* Enoxaparin 40 MG/0.4 ML SYRINGE SQ SCH (04:38)
[2019-06-04] MEDS: MethylPREDNISolone 40 MG/ML VIAL IVP SCH ×4 (04:39→23:18)
[2019-06-04 05:08] LABS: Basophils % 0.2 %; Hematocrit 42.3 % (35.3-44.9); Hemoglobin 13.3 g/dL (11.5-15.4); Immature Granulocytes % 0.7 % (0-4); Lymphocytes # 0.8 K/mcL (0.6-4.6); Mean Corpuscular HGB Conc 31.4 g/dL (31.6-35.5); Mean Corpuscular Hemoglobin 30.6 pg (28.0-33.3); Mean Corpuscular Volume 97.5 fL (83.0-100.0); Mean Platelet Volume 10.2 fL (9.4-12.4); Monocytes # 0.4 K/mcL (0.0-1.3); Monocytes % 3.3 %; Neutrophils # 9.5 K/mcL (1.6-8.9); Platelet Count 213 K/mcL (140-400); Red Blood Count 4.34 M/mcL (3.82-4.97); Red Cell Distribution Width 13.4 % (11.5-14.5); Segmented Neutrophils % 88.8 %
[2019-06-04 05:16] LABS: White Blood Count 10.7 K/mcL (4.3-11.1)
[2019-06-04 05:26] LABS: BUN/Creatinine Ratio 19 (6-26); Blood Urea Nitrogen 11 mg/dL (6-20); Calcium 9.3 mg/dL (8.6-10.3); Carbon Dioxide 28 mEq/L (23-29); Chloride 109 mEq/L (98-107); Glucose 176 mg/dL (70-105); Osmolality,Calculated 294 (280-300); Potassium 4.5 mEq/L (3.5-5.1); Sodium 140 mEq/L (136-145); eGFR For African Americans > 60 (> 60); eGFR For Non-African Americans > 60 (> 60)
[2019-06-04] MEDS: cefTRIAXone 1,000 MG in Water for inj. (sterile) 10 ML IVPB SCH (09:23)
[2019-06-04] MEDS: Nicotine 21 MG PATCH.TD24 TD SCH (09:23)
[2019-06-04] MEDS: Gabapentin 400 MG CAPSULE PO SCH ×3 (09:24→21:57)
[2019-06-04] MEDS: Azithromycin 500 MG in 0.9 % Sodium Chloride 250 ML IVPB SCH (09:24)
[2019-06-04] MEDS: Insulin LISPRO 300 UNITS/3 ML VIAL SQ SCH ×3 (09:25→15:41)
[2019-06-04] MEDS: QUEtiapine Fumarate 25 MG TABLET PO SCH (21:57)
[2019-06-05 05:25] LABS: Basophils % 0.1 %; Hematocrit 41.3 % (35.3-44.9); Hemoglobin 12.8 g/dL (11.5-15.4); Immature Granulocytes % 0.6 % (0-4); Lymphocytes % 9.6 %; Mean Corpuscular Hemoglobin 29.9 pg (28.0-33.3); Mean Corpuscular Volume 96.5 fL (83.0-100.0); Mean Platelet Volume 9.9 fL (9.4-12.4); Monocytes # 0.4 K/mcL (0.0-1.3); Monocytes % 4.1 %; Neutrophils # 9.2 K/mcL (1.6-8.9); Platelet Count 227 K/mcL (140-400); Red Blood Count 4.28 M/mcL (3.82-4.97); Red Cell Distribution Width 13.9 % (11.5-14.5); Segmented Neutrophils % 85.6 %; White Blood Count 10.8 K/mcL (4.3-11.1)
[2019-06-05 05:45] LABS: BUN/Creatinine Ratio 25 (6-26); Blood Urea Nitrogen 15 mg/dL (6-20); Calcium 9.3 mg/dL (8.6-10.3); Carbon Dioxide 26 mEq/L (23-29); Chloride 110 mEq/L (98-107); Glucose 168 mg/dL (70-105); Osmolality,Calculated 293 (280-300); Potassium 4.4 mEq/L (3.5-5.1); Sodium 139 mEq/L (136-145); eGFR For African Americans > 60 (> 60); eGFR For Non-African Americans > 60 (> 60)
[2019-06-05 06:19] VITALS: BP 105/60
[2019-06-05] MEDS: *HR* Enoxaparin 40 MG/0.4 ML SYRINGE SQ SCH (07:44)
[2019-06-05] MEDS: MethylPREDNISolone 40 MG/ML VIAL IVP SCH (07:45)
[2019-06-05] MEDS: Insulin LISPRO 300 UNITS/3 ML VIAL SQ SCH (08:22)
[2019-06-05] MEDS: cefTRIAXone 1,000 MG in Water for inj. (sterile) 10 ML IVPB SCH (08:24)
[2019-06-05] MEDS: Nicotine 21 MG PATCH.TD24 TD SCH (08:25)
[2019-06-05] MEDS: Azithromycin 500 MG in 0.9 % Sodium Chloride 250 ML IVPB SCH (08:25)
[2019-06-05] MEDS: Gabapentin 400 MG CAPSULE PO SCH (08:26)
== END 2019-06-05 10:30 | disposition home or self-care (01) | DRG 193 ==
LOC: 2NENU → SUATTDRO 06-03 10:27 → 2NNU 06-03 21:58 → 3ANU 06-04 22:49
PROVIDERS: ADMIT Internal Medicine; ATTEND Family Medicine